=== PATIENT | female | born 1955 | race Caucasian/White ===

== ENCOUNTER 2019-08-13 08:09 | Inpatient (IN) | payer MEDICARE, BC, SELFPAY ==
--- NOTE | ~2019-08-13 | CT_ITS ---
EXAMINATION: CT abdomen pelvis w con DATE: 08/13/2019 09:26 INDICATION: Abdominal pain. History of lap band. TECHNIQUE: Computed tomography (CT) of the abdomen and pelvis was performed without intravenous contr ast. Automated exposure control and iterative reconstruction technique were employed. Exam dose: 123 6.47 mGy-cm total exam DLP. COMPARISON: None. FINDINGS: There is an 11 mm right hepatic cyst. No other hepatic space-occupying mass lesion is detec joseph. Mild periportal edema. There is mild gallbladder wall thickening/edema and mild pericholecystic stranding. Acute cholecystit is is not excluded. No bile duct dilatation. No pancreatic ductal dilatation. No pancreatic mass lesi on or calcification. Normal splenic size. Normal morphology of the adrenal glands. 5 mm lower pole right renal cyst. The kidneys are otherwise unremarkable. No urinary tract calculus o r hydroureteronephrosis. The urinary bladder, uterus and adnexal areas are unremarkable. There is abdominal aortic calcification. No intraperitoneal or retroperitoneal or pelvic mass lesion or adenopathy or ascites is detected. Diverticulosis of colon, primarily involving the sigmoid colon; no CT evidence of diverticulitis. No bowel obstruction or intraperitoneal free air. Small fat-containing umbilical hernia. Degenerative changes of the thoracic and lumbar spine. No suspicious osteolytic or osteoblastic lesio ns. IMPRESSION: Mild gallbladder wall thickening/edema and mild pericholecystic stranding. Acute cholecy stitis is not excluded. Consider gallbladder ultrasound and possibly radionuclide hepatobiliary scan as clinically appropriate 5 mm right renal cyst Diverticulosis of the colon; no CT evidence of diverticulitis Reviewed, dictated and finalized at [facility]. Reviewed, dictated and finalized at location B. K WATCHMAN IMPRESSION: Mild gallbladder wall thickening/edema and mild pericholecystic st randing. Acute cholecystitis is not excluded. Consider gallbladder ultrasound a nd possibly radionuclide hepatobiliary scan as clinically appropriate 5 mm right renal cyst Diverticulosis of the colon; no CT evidence of diverticulitis
--- NOTE | ~2019-08-13 | US_ITS ---
EXAMINATION: US right upper quadrant DATE: 08/13/2019 11:34 INDICATION: Right upper quadrant abdominal pain. Distended gallbladder on prior CT. TECHNIQUE: Multiple grayscale and Doppler ultrasound images of the abdomen were obtained. COMPARISON: CT dated 08/13/2019 FINDINGS: The pancreatic head and body are normal in appearance. The pancreatic tail is not visualized. Visual ized proximal inferior vena cava is normal. Liver has normal echogenicity and contour, with a smooth surface. 10 mm anechoic cyst in segment 6 of the liver. No intrahepatic biliary duct dilation suspect ed. Portal venous flow was seen in the hepatopetal, normal direction and has normal Doppler waveform. Large shadowing gallstones at the neck of the gallbladder which appears dilated with wall thickening and small amount of pericholecystic fluid at the gallbladder fossa. Sonographic Kasper sign was repo rted as positive by the commercial escrow officer. There is mild intrahepatic biliary ductal dilation of the common bile duct remains normal in caliber measuring 5 mm. Visualized portion of the right kidney demonstra cordell normal contour and echogenicity with no hydronephrosis. IMPRESSION: 1. Likely acute cholecystitis with gallstone within dilated gallbladder with thickened wall, small am ount pericholecystic fluid and positive sonographic Kasper's. 2. Mild intrahepatic biliary ductal dilation but with normal caliber common bile duct. Correlate with liver function tests. Reviewed, dictated and finalized at location A. PROGRAMMER IMPRESSION: 1. Likely acute cholecystitis with gallstone within dilated gallbladder with th ickened wall, small amount pericholecystic fluid and positive sonographic Paulina y's. 2. Mild intrahepatic biliary ductal dilation but with normal caliber common cameron e duct. Correlate with liver function tests.
[2019-08-13 08:17] VITALS: BP 145/86; PULSE 78; RESP 18; TEMP 36.7; O2SAT 96
[2019-08-13 08:36] LABS: Basophils Absolute Auto 0.1 K/mm3 (0.0-0.1); Basophils Percent Auto 0.7 % (0.2-1.2); Eosinophils Absolute Auto 0.1 K/mm3 (0-0.3); Eosinophils Percent Auto 1.1 % (0-4.4); Hematocrit 44.4 % (37.0-47.0); Hemoglobin 14.6 g/dL (12.0-15.0); Immature Granulocyte Absolute 0.03 K/mm3 (0.00-0.031); Immature Granulocyte Percent A 0.3 % (0-0.5); Lymphocytes Absolute Auto 1.58 K/mm3 (0.9-3.2); Lymphocytes Percent Auto 15.3 % (18.3-44.2); Mean Corpuscular HGB Conc 32.9 g/dl (32-36); Mean Corpuscular Hemoglobin 29.7 pg (26-34); Mean Corpuscular Volume 90.2 fl (80-100); Mean Platelet Volume 10.9 fl (7.4-10.4); Monocytes Absolute Auto 0.6 K/mm3 (0.1-0.6); Neutrophils Absolute Auto 7.9 K/mm3 (1.3-6.7); Neutrophils Percent Auto 76.6 % (45.5-73.1); Platelet Count Result 228 k/mm3 (150-375); Red Blood Count 4.92 M/mm3 (4.2-5.4); Red Cell Distribution Width 13.9 % (11.5-14.5); White Blood Count 10.3 K/mm3 (4.5-10.0)
[2019-08-13 08:41] LABS: Add Urine Microscopic? YES; Appearance Urine Clear (Clear); Bilirubin Urine Negative (Negative); Blood Urine Negative (Negative); Color Urine Yellow (Yellow); Glucose Urine UA Negative (Negative); Ketones Urine Negative (Negative); Leukocyte Esterase Ur 2+ LEU/UL (Negative); Mucus Urine Rare /lpf; Nitrate Urine Negative (Negative); Protein Urine 1+ mg/dL (Negative); Specific Grav Ur 1.021 (1.001-1.035); Squamous Epithelial Cell Urine Rare /hpf (Few); Urobilinogen Urine Negative mg/dL (<2.0); WBC Urine 21-30 /hpf
[2019-08-13 08:49] LABS: Alanine Aminotransferase 234 U/L (4-35); Albumin Level 4.8 g/dL (3.5-5.1); Alkaline Phosphatase 127 U/L (38-126); Aspartate Amino Transferase 465 U/L (14-36); Bilirubin,Total 1.4 mg/dL (0.2-1.3); Blood Urea Nitrogen 13 mg/dL (7-17); Calcium 10.2 mg/dL (8.4-10.2); Carbon Dioxide 28 mmol/L (22-30); Chloride 99 mmol/L (98-107); Estimated CRCL calculation 71 ml/min; Estimated Glomerular Filt Rate > 60; Glucose 131 mg/dL (65-105); Lipase 69 U/L (23-300); Potassium 3.6 mmol/L (3.4-5.0); Sodium 141 mmol/L (137-145)
--- NOTE | 2019-08-13 09:01 | ED.ABDPAIN ---
HPI - Abdominal Pain General Chief Complaint: Abdominal Pain Stated Complaint: abd pain Time Seen by Provider: 08/13/19 09:06 Source: patient Mode of arrival: ambulatory Limitations: no limitations History of Present Illness HPI narrative: A 63 y/o female pt presents to the ED, with c/o RUQ ABD pain that radiates across her back, that woke her up out of her sleep at 3 am this morning (6 hours ago). Pt describes her ABD pain as an aching, squeezing sensation and notes feeling nauseous, but denies vomiting, diarrhea, SOB or CP. She denies any aggravating or alleviating factors. She notes having a PSHx of an appendectomy, and a gastric banding procedure. Pt states that she is unsure of the last time she saw the surgeon who performed the gastric banding procedure. Pt denies any PMHx of DM, HTN, HLD, [place], CVA or thyroid problems and denies taking any anticoagulation therapy. MD elicited complaint: abdominal pain Onset (ago): hour(s) (6) Location: RUQ Quality: aching and other (squeezing) Radiation: back Exacerbating factors: nothing Relieving factors: nothing Associated symptoms: nausea Related Data Home Medications Medication Instructions Recorded Confirmed hyoscyamine sulfate 0.375 mg 0.375 mg PO .Q24 tablet 07/17/19 tablet,extended release,12 hr minocycline 50 mg tablet 50 mg PO BID 07/17/19 Allergies Allergy/AdvReac Type Severity Reaction Status Date / Time talc Allergy Unknown Unknown Verified 08/13/19 08:52 terbinafine Allergy Unknown Unknown Verified 08/13/19 08:52 TERBINAFINE HCL Allergy Unknown HIVES Uncoded 04/16/18 07:04 Review of Systems Review of Systems: All systems reviewed & are unremarkable except as noted in HPI and below Cardiovascular: Cardiovascular: Denies chest pain Respiratory: Respiratory: Denies dyspnea Gastrointestinal: Gastrointestinal: Reports abdominal pain (RUQ aching, squeezing), Denies diarrhea, Reports nausea and Denies vomiting Musculoskeletal: Musculoskeletal: Reports back pain (radiating from RUQ ABD) [facility] Past Medical History Medical History (Updated 08/13/19 @ 11:12 by Shawn Frank MD) Ankle fracture, right Arthritis Hammer toes, bilateral Hiatal hernia History of gastroesophageal reflux (GERD) History of rectal polyps Hx of colonic polyps Irritable bowel Mitral valve prolapse Sleep apnea Tuberculosis Surgical History Surgical History (Updated 08/13/19 @ 10:04 by Demetrius Yates, [employer]™) History of appendectomy History of gastric bypass lap band procedure Family History Family History (Updated 12/20/18 @ 08:07 by DOCTOR UNKNOWN) Mother Family history of multiple sclerosis Family history of diabetes mellitus in first degree relative Acute myocardial infarction, Onset Age: 79 Diabetes mellitus Family history of cardiovascular disease Father Acute myocardial infarction Social History Social History Smoking status: Former smoker Second hand tobacco smoke exposure: No Alcohol intake: never Exam Narrative: Exam Narrative: General appearance: Well-developed, well-nourished Skin: Normal color Head: Normocephalic, nontraumatic Eyes: Clear conjunctiva ENT: Oropharynx normal, ears normal, nose normal Neck: Supple, nontender Chest and respiratory: Airway patent, no respiratory distress, no accessory muscle use Heart: Regular rate/rhythm Abdomen: Soft, moderate tenderness right upper quadrant, positive Kasper sign, no organomegaly, quiet bowel sounds Vascular: Normal peripheral pulses, normal capillary refill. Musculoskeletal: Normal range of motion, nontender back Neurologic: Alert and oriented ?3, GOLD MINER is normal as tested, no gross motor deficit
[2019-08-13] MEDS: ONDANSETRON INJ 4 MG/2 ML VIAL IV PUSH (09:07)
[2019-08-13] MEDS: HYDROMORPHONE HCL 1 MG/ML INJ 0.5 MG IV PUSH (09:07)
[2019-08-13] MEDS: SODIUM CHLORIDE 0.9% IV 1,000 ML 999 ML IV CONT (09:59)
[2019-08-13 12:32] VITALS: BP 129/80; PULSE 73; RESP 16; O2SAT 99
[2019-08-13 13:00] VITALS: BMI 38.6
--- NOTE | 2019-08-13 13:00 | ADMGEN ---
This patient, Ilda Prather, was admitted to Medical Room 261-01. Patient/family oriented to hospital policies and general routines including ID bracelet, bed and alarms, visiting hours, pain management, procedures, bathroom and other care routines, personal items, smoking policy, room service/diet, and visiting hours. Valuables list has been completed. Information on how to activate the Rapid Response Team has been discussed. Patient/Family are encouraged to report perceived risks to care and to ask questions if they do not understand what they are told or what they should do.
[2019-08-13] MEDS: LACTATED RINGERS 1,000 ML 125 ML IV CONT (13:38)
[2019-08-13 14:00] VITALS: BP 182/96; PULSE 80; RESP 16; TEMP 36.1; O2SAT 98; BMI 39.0
[2019-08-13 14:47] VITALS: BP 142/80
--- NOTE | 2019-08-13 14:54 | PM.IMHP ---
H&P: HPI History of Present Illness Chief complaint: Acute Cholecystitis/Acute UTI Narrative: Ilda Prather is a 63 year old female pt who presented to the ED today, with c/o RUQ ABD pain that radiates across her back. It woke her up out of her sleep at 3 am this morning. Pt describes her abdominal pain as an aching, squeezing sensation and notes feeling nauseous, but denies vomiting, diarrhea, SOB or chest pain. she states that last night at supper she ate home ate pizza with months roll a and other type of cheese along with pepperoni on it. She did not immediately have pain afterwards but developed the epigastric pain radiating to her right side and right scapular area when she woke up early this morning. She denies any aggravating or alleviating factors. She notes having a PSHx of an appendectomy, and a gastric banding procedure (2013). Pt states that she is unsure of the last time she saw the surgeon who performed the gastric banding procedure. She states that she did cm for a year and a half. She is not sure whether her lap band has any fluid in it or not. Her highest weight ever however was just about 10 lb higher than she is now at around 230 lbs. Pt denies any PMHx of DM, HTN, HLD, [place], CVA or thyroid problems and denies taking any anticoagulation therapy. Review of Systems Constitutional: Constitutional: Reports as per HPI and Denies headache(s) Eyes: Eyes: Denies loss of vision and Denies eye pain ENT: Reports Normal hearing present, Denies change in voice, Denies dizziness and Denies headache(s) Cardiovascular: Cardiovascular: Denies chest pain, Denies dyspnea and Reports other (History of mitral valve prolapse) Comments: Elevated blood pressure at last PCP visit. Is watching diet with low sodium and will start medication next visit if still elevated. Respiratory: Respiratory: Reports no additional respiratory complaints, Denies dyspnea and Denies wheezing Comments: history of obstructive sleep apnea. Possible history of tuberculosis. Gastrointestinal: Gastrointestinal: Reports abdominal pain, Reports heartburn ( not on a routine H2 keisha or proton pump inhibitor) and Reports diarrhea ( Occasional days of multiple loose stools.) Comments: Also has history of previous rectal and colonic polyps. History of previous appendectomy History of possible irritable bowel syndrome Musculoskeletal: Musculoskeletal: Denies back pain and Denies arthralgias Neurologic: Reports Normal hearing present, Denies dizziness, Denies headache(s), Denies loss of vision and Denies memory loss Psychiatric: Psychiatric: Denies memory loss and Denies panic attacks Endocrine: Endocrine: Reports no additional endocrine complaints Hematologic/Lymphatic: Hematologic/Lymphatic: Reports no additional hematologic/lymphatic complaints Allergic/Immunologic: Allergic/Immunologic: Denies wheezing PMFSH Past Medical History Medical History (Updated 08/13/19 @ 15:58 by Tomi Cervantes MD) Ankle fracture, right Arthritis Elevated blood pressure reading (~03/2019) Hammer toes, bilateral Hiatal hernia History of gastroesophageal reflux (GERD) History of rectal polyps Hx of colonic polyps Irritable bowel Mitral valve prolapse Sleep apnea Tuberculosis Surgical History Surgical History (Updated 08/13/19 @ 15:58 by Tomi Cervantes MD) History of appendectomy History of gastric bypass lap band procedure Social History Social History (Reviewed 08/13/19 @ 10:04 by Demetrius Yates, [facility]) Smoking packs per day: 0.5 Smoking cigarettes per day: 10.0 Years smoked: 20 Smoking pack-years: 10.00 Smoking status: Former smoker Second hand tobacco smoke exposure: No Alcohol intake: current Drinks per week: 3 Substance use: former Substance use type: marijuana Last use: 1960s Gender identity (if verbalized by the patient): Female Spiritual care concerns: No Agree to blood products: Yes Meds Home Medica
--- NOTE | 2019-08-13 15:58 | PM.IMCN ---
Assessment and Plan Assessment and plan (1) Cholelithiasis with acute cholecystitis with biliary obstruction: Onset Date: 08/13/19 Code(s): K80.01 - Calculus of gallbladder with acute cholecystitis with obstruction Status: Acute Assessment and Plan: Patient is 63-year-old female with no significant past medical history other than elevated blood pressure without history of hypertension patient was awakened early this morning with abdominal pain she came to emergency department patient is found to have acute cholecystitis seen by general surgery team and planned to have a cholecystectomy tomorrow, present time patient denies any complaint of chest pain shortness of breath, palpitation fever or chills, she did have some dry heaves but no vomiting. (2) Elevated blood pressure reading: Onset Date: ~03/2019 Code(s): R03.0 - Elevated blood-pressure reading, without diagnosis of hypertension Status: Acute Assessment and Plan: Patient with elevated blood pressure without history of hypertension her primary care physician is aware and has spoken with the patient down the road patient will need blood pressure medication, continue to monitor and plan accordingly, denies any chest pain shortness of breath palpitation or dizziness HPI Data of Consult Consult date: 08/13/19 Requesting Physician: Tomi Cervantes MD Primary Care Provider: Esau Duque DO Consult Narrative Narrative: Ilda Prather is a 63 year old female Patient is 63-year-old female with no significant past medical history other than elevated blood pressure without history of hypertension patient was awakened early this morning with abdominal pain she came to emergency department patient is found to have acute cholecystitis seen by general surgery team and planned to have a cholecystectomy tomorrow, present time patient denies any complaint of chest pain shortness of breath, palpitation fever or chills, she did have some dry heaves but no vomiting. Review of Systems Review of Systems: All systems reviewed & are unremarkable except as noted in HPI and below PMFSH Past Medical History Medical History (Updated 08/13/19 @ 15:58 by Tomi Cervantes MD) Ankle fracture, right Arthritis Elevated blood pressure reading (~03/2019) Hammer toes, bilateral Hiatal hernia History of gastroesophageal reflux (GERD) History of rectal polyps Hx of colonic polyps Irritable bowel Mitral valve prolapse Sleep apnea Tuberculosis Surgical History Surgical History (Updated 08/13/19 @ 15:58 by Tomi Cervantes MD) History of appendectomy History of gastric bypass lap band procedure Social History Social History Smoking packs per day: 0.5 Smoking cigarettes per day: 10.0 Years smoked: 20 Smoking pack-years: 10.00 Smoking status: Former smoker Second hand tobacco smoke exposure: No Alcohol intake: current Drinks per week: 3 Substance use: former Substance use type: marijuana Last use: 1960s Gender identity (if verbalized by the patient): Female Spiritual care concerns: No Agree to blood products: Yes Meds Home Medications and Allergies Home Medications Medication Instructions Recorded Confirmed Type hyoscyamine sulfate 0.375 mg 0.375 mg PO .Q24 tablet 07/17/19 08/13/19 History tablet,extended release,12 hr minocycline 50 mg tablet 50 mg PO BID PRN 07/17/19 08/13/19 History aspirin 325 mg PO DAILY 08/13/19 08/13/19 History cholecalciferol (vitamin D3) 2,000 unit PO DAILY 08/13/19 08/13/19 History [Vitamin D3] loperamide-simethicone [Imodium 1 tablet PO DAILY 08/13/19 08/13/19 History Multi-Symptom Relief] peppermint oil [IBgard] 90 mg PO DAILY 08/13/19 08/13/19 History Allergies Allergy/AdvReac Type Severity Reaction Status Date / Time terbinafine Allergy Mild Hives Verified 08/13/19 13:02 Vital Signs Re
--- NOTE | 2019-08-13 16:09 | ECG_ITS ---
Measurements Intervals [place] Rate: 63 P: -3 PA: 197 QRS: -13 QRSD: 98 T: -14 QT: 409 QTc: 419 Interpretive Statements SINUS RHYTHM VOLTAGE CITERIA FOR LVH BORDERLINE ST-T WAVE ABNORMALITY- INFERIOR LEADS BORDERLINE ECG Electronically Signed On 08-13-2019 17:56:43 LOCKER ROOM ATTENDANT by Eric Monroy D.O.
[2019-08-13 17:57] LABS: Albumin Level 4.3 g/dL (3.5-5.1); Alkaline Phosphatase 126 U/L (38-126); Bilirubin,Total 1.1 mg/dL (0.2-1.3)
[2019-08-13 18:31] LABS: Alanine Aminotransferase 799 U/L (4-35); Aspartate Amino Transferase 991 U/L (14-36)
[2019-08-13] MEDS: ACETAMINOPHEN 325 MG TABLET 650 MG PO ×2 (18:53→23:42)
[2019-08-13 21:39] VITALS: BP 132/84; PULSE 76; RESP 16; TEMP 36.7; O2SAT 93
[2019-08-13 22:04] VITALS: BP 132/84; PULSE 76; RESP 16; TEMP 36.7; O2SAT 93
[2019-08-13] MEDS: LACTATED RINGERS 1,000 ML 80 ML IV CONT (23:40)
[2019-08-14] VITALS (13 sets, daily range): BP systolic 128–151; BP diastolic 78–98; PULSE 58–76; RESP 12–16; TEMP 35.9–37.4; O2SAT 94–100
[2019-08-14 05:50] LABS: Lipase 36 U/L (23-300)
[2019-08-14 05:56] LABS: Alanine Aminotransferase 623 U/L (4-35); Albumin Level 3.7 g/dL (3.5-5.1); Alkaline Phosphatase 94 U/L (38-126); Aspartate Amino Transferase 460 U/L (14-36); Blood Urea Nitrogen 7 mg/dL (7-17); Calcium 8.9 mg/dL (8.4-10.2); Carbon Dioxide 28 mmol/L (22-30); Chloride 103 mmol/L (98-107); Estimated CRCL calculation 64 ml/min; Estimated Glomerular Filt Rate > 60; Glucose 98 mg/dL (65-105); Potassium 3.6 mmol/L (3.4-5.0); Sodium 139 mmol/L (137-145)
[2019-08-14 06:05] LABS: Basophils Percent Auto 0.9 % (0.2-1.2); Eosinophils Absolute Auto 0.2 K/mm3 (0-0.3); Eosinophils Percent Auto 3.7 % (0-4.4); Hematocrit 37.8 % (37.0-47.0); Hemoglobin 12.1 g/dL (12.0-15.0); Immature Granulocyte Absolute 0.01 K/mm3 (0.00-0.031); Immature Granulocyte Percent A 0.2 % (0-0.5); Lymphocytes Absolute Auto 1.64 K/mm3 (0.9-3.2); Lymphocytes Percent Auto 38.1 % (18.3-44.2); Mean Corpuscular Hemoglobin 29.3 pg (26-34); Mean Corpuscular Volume 91.5 fl (80-100); Monocytes Absolute Auto 0.4 K/mm3 (0.1-0.6); Neutrophils Absolute Auto 2.1 K/mm3 (1.3-6.7); Neutrophils Percent Auto 48.1 % (45.5-73.1); Platelet Count Result 188 k/mm3 (150-375); Red Blood Count 4.13 M/mm3 (4.2-5.4); Red Cell Distribution Width 14.1 % (11.5-14.5); White Blood Count 4.3 K/mm3 (4.5-10.0)
[2019-08-14] MEDS: CHLORHEXIDINE GLUCONATE 4% SOL 120 ML BTL 1 APPLIC TOPICAL (08:04)
--- NOTE | 2019-08-14 08:09 | WPDHPUPDATE1 ---
History and Physical Update Update Date/Time: 08/14/19 08:09 History and Physical has been reviewed, including an updated exam of the patient. There are NO changes in the patient's condition. Risks, benefits, and alternatives Of a laparoscopic cholecystectomy possible intraoperative cholangiogram possible open cholecystectomy have been discussed and questions answered. Patient agrees to proceed with procedure.
[2019-08-14] MEDS: ACETAMINOPHEN 325 MG TABLET 650 MG PO (08:18)
[2019-08-14] MEDS: BISACODYL 10 MG SUPPOSITORY RECTAL (09:58)
--- NOTE | 2019-08-14 13:05 | PM.IMPN ---
Progress Note: A&P Assessment and Plan (1) Cholelithiasis with acute cholecystitis with biliary obstruction: Onset Date: 08/13/19 Code(s): K80.01 - Calculus of gallbladder with acute cholecystitis with obstruction Status: Acute Assessment and Plan: 08/14/19 13:05 Patient is 63-year-old female with no significant past medical history other than elevated blood pressure without history of hypertension patient was awakened early this morning with abdominal pain she came to emergency department patient is found to have acute cholecystitis seen by general surgery team and planned to have a cholecystectomy tomorrow, present time patient denies any complaint of chest pain shortness of breath, palpitation fever or chills, she did have some dry heaves but no vomiting. Today patient is seen by surgery team patient denies any abdominal pain nausea or vomiting fever chills and scheduled for lap brayden later this afternoon, will follow up. (2) Elevated blood pressure reading: Onset Date: ~03/2019 Code(s): R03.0 - Elevated blood-pressure reading, without diagnosis of hypertension Status: Acute Assessment and Plan: Patient with elevated blood pressure without history of hypertension her primary care physician is aware and has spoken with the patient down the road patient will need blood pressure medication, continue to monitor and plan accordingly, denies any chest pain shortness of breath palpitation or dizziness, today patient blood pressure is more to baseline Subjective Date/time seen: 08/14/19 13:05 Patient is 63-year-old female with no significant past medical history other than elevated blood pressure without history of hypertension patient was awakened early this morning with abdominal pain she came to emergency department patient is found to have acute cholecystitis seen by general surgery team and planned to have a cholecystectomy tomorrow, present time patient denies any complaint of chest pain shortness of breath, palpitation fever or chills, she did have some dry heaves but no vomiting. Today patient is seen by surgery team patient denies any abdominal pain nausea or vomiting fever chills and scheduled for lap brayden later this afternoon, will follow up. Review of Systems Review of Systems: All systems reviewed & are unremarkable except as noted in HPI and below Exam Narrative: Exam Narrative: Moderately obese Const: General: comfortable and no acute distress HENMT: General nose exam: Normal nares present Mouth: Yes moist mucous membranes Eyes: General: appearance normal, both eyes and all related structures Sclera: sclerae normal Neck: Neck: supple Resp: Effort & Inspection: normal respiratory effort Auscultation: clear to auscultation bilaterally Cardio: Rate: regular rate Rhythm: regular rhythm GI: Auscultation: normal bowel sounds Other: Tender in right upper quadrant Skin: General skin exam: normal color and no rashes or lesions noted Neuro: Speech: normal speech Sensory Exam: normal sensation Extrem: General: normal to inspection Psych: Mental Status: mental status grossly normal Affect: normal affect Objective Data Vital Signs Vital Signs: Vital Signs - 24 hr 08/13/19 14:00 08/13/19 14:47 08/13/19 21:39 Temperature 96.9 F L 98.0 F Pulse Rate 80 76 Respiratory Rate 16 16 Blood Pressure 182/96 H 142/80 H 132/84 Pulse Oximetry 98 93 08/13/19 22:04 08/14/19 05:55 Temperature 98.0 F 97.0 F L Pulse Rate 76 65 Respiratory Rate 16 16 Blood Pressure 132/84 128/78 Pulse Oximetry 93 98 Intake/Output Intake/Output: Intake & Output 08/11/19 08/12/19 08/13/19 08/14/19 23:59 23:59 23:59 23:59 Intake Total 2840 647 Balance 2840 647 Meds/Results Medications: Active Medications Generic Name Dose Route Start Last Admin Trade Name Freq PRN Reason Stop Dose Admin Acetaminophen 650 mg 08/13/19 16:04 08/14/19 08:18 Tylenol Tablet P
--- NOTE | 2019-08-14 13:15 | WPDANESEPPF ---
Anes - Initial Pre Proc Eval Procedure: Operation Date: 08/14/19 14:00 Proposed Procedures p Laparoscopic Cholecystectomy,Possible Intraoperative Cholangiograms,Possible Open - Tomi Cervantes MD Date/Time: 08/14/19 13:15 Surgeon: Tomi Cervantes MD Pre Op Diagnosis: Acute Cholecystitis/Acute UTI Patient Data Age: 63 Gender: F Height: 5 ft 4 in Weight: 103.2 kg Last Vital Signs Temp 36.1 C L 08/14/19 05:55 Pulse 65 08/14/19 05:55 Resp 16 08/14/19 05:55 BP 128/78 08/14/19 05:55 Pulse Ox 98 08/14/19 05:55 Allergies Allergy/AdvReac Type Severity Reaction Status Date / Time terbinafine Allergy Mild Hives Verified 08/13/19 13:02 Home Medications Medication Instructions Recorded Confirmed Type hyoscyamine sulfate 0.375 mg 0.375 mg PO .Q24 tablet 07/17/19 08/13/19 History tablet,extended release,12 hr minocycline 50 mg tablet 50 mg PO BID PRN 07/17/19 08/13/19 History aspirin 325 mg PO DAILY 08/13/19 08/13/19 History cholecalciferol (vitamin D3) 2,000 unit PO DAILY 08/13/19 08/13/19 History [Vitamin D3] loperamide-simethicone [Imodium 1 tablet PO DAILY 08/13/19 08/13/19 History Multi-Symptom Relief] peppermint oil [IBgard] 90 mg PO DAILY 08/13/19 08/13/19 History Laboratory Tests 08/13/19 08/14/19 08/14/19 17:26 04:39 04:39 WBC 4.3 K/mm3 L K/mm3 (4.5-10.0) RBC 4.13 M/mm3 L M/mm3 (4.2-5.4) Hgb 12.1 g/dL g/dL (12.0-15.0) Hct 37.8 % % (37.0-47.0) MCV 91.5 fl fl (80-100) MCH 29.3 pg pg (26-34) MCHC 32.0 g/dl g/dl (32-36) RDW 14.1 % % (11.5-14.5) Plt Count 188 k/mm3 k/mm3 (150-375) MPV 11.0 fl H fl (7.4-10.4) Immature Gran % (Auto) 0.2 % % (0-0.5) Neut % (Auto) 48.1 % % (45.5-73.1) Lymph % (Auto) 38.1 % % (18.3-44.2) Blaine % (Auto) 9.0 % H % (2.6-8.5) Eos % (Auto) 3.7 % % (0-4.4) Baso % (Auto) 0.9 % % (0.2-1.2) Lymph # (Auto) 1.64 K/mm3 K/mm3 (0.9-3.2) Blaine # (Auto) 0.4 K/mm3 K/mm3 (0.1-0.6) Eos # (Auto) 0.2 K/mm3 K/mm3 (0-0.3) Baso # (Auto) 0.0 K/mm3 K/mm3 (0.0-0.1) Abs Immat Gran (auto) 0.01 K/mm3 K/mm3 (0.00-0.031) Absolute Neuts (auto) 2.1 K/mm3 K/mm3 (1.3-6.7) Absolute Nucleated RBC 0.0 K/mm3 K/mm3 (0.0-0.012) Nucleated RBC % 0.0 % % (0.0-0.2) Sodium 139 mmol/L mmol/L (137-145) Potassium 3.6 mmol/L mmol/L (3.4-5.0) Chloride 103 mmol/L mmol/L (98-107) Carbon Dioxide 28 mmol/L mmol/L (22-30) BUN 7 mg/dL D mg/dL (7-17) Creatinine 0.90 mg/dL mg/dL (0.7-1.0) Estim Creat Clear Calc 64 ml/min ml/min Estimated GFR > 60 (59 - ) Glucose 98 mg/dL mg/dL (65-105) Calcium 8.9 mg/dL mg/dL (8.4-10.2) Magnesium 2.0 mg/dL mg/dL (1.6-2.3) Total Bilirubin 1.1 mg/dL mg/dL 1.0 mg/dL mg/dL (0.2-1.3) (0.2-1.3) Direct Bilirubin 0.0 mg/dL mg/dL 0.0 mg/dL mg/dL (0-0.3) (0-0.3) AST 991 U/L H U/L 460 U/L H U/L (14-36) (14-36) ALT 799 U/L H U/L 623 U/L H U/L (4-35) (4-35) Alkaline Phosphatase 126 U/L U/L 94 U/L U/L (38-126) (38-126) Total Protein 7.0 g/dL g/dL 7.0 g/dL g/dL (6.3-8.2) (6.3-8.2) Albumin 4.3 g/dL g/dL 3.7 g/dL g/dL (3.5-5.1) (3.5-5.1) Lipase Blood Type Antibody Screen 08/14/19 08/14/19 04:39 04:39 WBC RBC Hgb Hct MCV MCH MCHC RDW Plt Count MPV Immature Gran % (Auto) Neut % (Auto) Lymph % (Auto) Blaine % (Auto) Eos % (Auto) Baso % (Auto) Lymph # (Auto) Blaine # (Auto) Eos # (Auto)
[2019-08-14] MEDS: SCOPOLAMINE 1.5 MG PATCH TRANSDERM (14:00)
[2019-08-14] MEDS: LACTATED RINGERS 1,000 ML 30 ML IV CONT ×2 (14:07→16:14)
--- NOTE | 2019-08-14 14:12 | PC.NURSE ---
Patient to OR at 1230.
[2019-08-14] MEDS: BUPIVACAINE/EPINEPHRINE 0.5% 30 ML VIAL INFILTRATE (14:52)
--- NOTE | 2019-08-14 16:16 | PM.PROC ---
Procedure Note - Detailed Date of procedure: 08/14/19 Pre-op diagnosis: Acute Cholecystitis/Acute UTI Acute cholecystitis with cholelithiasis Post-op diagnosis: same Procedure performed: Laparoscopic cholecystectomy. Description of procedure: Procedure Details: Patient was seen preoperatively in the holding area and risks, benefits and alternatives confirmed. Patient was taken to the operating room and general anesthesia was induced. A time out was then preformed with the surgery team confirming patient and site of surgery. The abdomen was prepped and draped in the usual sterile fashion. Incision was made just below the umbilicus. Two stay sutures of O- Vicryl were used to elevate the mid-line fascia beneath the umbilicus and a small incision was made under direct vision. The peritoneum was entered. The 12 mm Cortez cannula was introduced under direct vision. First under low flow and then under high flow the abdomen was insufflated with carbon dioxide never exceeding a pressure of 14. Three 5 mm trocars were then introduced under direct vision. The following trocars were introduced under direct vision: a 5 mm in the epigastrium and two 5 mm trocars along the right costal margin. There were significant adhesions of the omentum to the entire inferior surface of the gallbladder. These were carefully taken down with Bovie cautery and the L hook. At the bottom near the cystic duct and cystic artery of blunt dissection with a Kittner was completed. Then the gall bladder was grasped and the cystic duct and artery were dissected free and clipped with an 5 mm endo-clip security project manager. Two were placed on the patient's side and 1 on the gallbladder side of each of these structures. The window of safety was identified prior to clipping and cutting these structures. No other tubular structures were noted between the gallbladder and the common duct area.. The cystic duct was then transected. The cystic artery was also transected at this point. The gall bladder was removed using electrocautery and then removed using a large 10 mm grasper via the umbilical incision. The trocars were removed visualizing hemostasis and the remaining gas evacuated. The large trocar site at the umbilicus was closed with an 0 vicryl figure of 8 suture. The 2 stay sutures mentioned above on either side of the fascia were also tied together to help approximate this midline fascia. Further local anesthetic was placed into each incision for postop pain control. The skin incisions were closed with a subcuticular of 4-0 Monocryl. Surgical glue then was applied to all the incisions. Patient tolerated the procedure well was taken to the recovery room in good condition. Anesthesia: MAVERICKA Surgeon: Tomi Cervantes MD Dean Of Students: JANINE Pulido, OR 1st assist Estimated blood loss (mL): 60 Drains: No Packing: No Pathology: yes (The gallbladder) Complications: No immediate complications Condition: stable Disposition: PACU Findings: Mildly inflamed gallbladder with a fairly large stone within it upon palpation when it was removed from the umbilical incision.
--- NOTE | 2019-08-14 18:00 | PC.NURSE ---
Pt returned from OR.
[2019-08-14] MEDS: DOCUSATE SODIUM 100 MG CAPSULE PO (18:10)
[2019-08-14] MEDS: ACETAMINOPHEN 500 MG TABLET PO (18:12)
[2019-08-15] MEDS: ACETAMINOPHEN 500 MG TABLET PO ×2 (00:36→06:40)
[2019-08-15 01:30] VITALS: TEMP 36.4
[2019-08-15 06:18] VITALS: BP 131/78; PULSE 68; RESP 16; TEMP 36.3; O2SAT 96
[2019-08-15 08:21] LABS: Hematocrit 38.9 % (37.0-47.0); Hemoglobin 12.5 g/dL (12.0-15.0); Mean Corpuscular HGB Conc 32.1 g/dl (32-36); Mean Corpuscular Hemoglobin 29.2 pg (26-34); Mean Corpuscular Volume 90.9 fl (80-100); Mean Platelet Volume 10.6 fl (7.4-10.4); Platelet Count Result 210 k/mm3 (150-375); Red Blood Count 4.28 M/mm3 (4.2-5.4); White Blood Count 8.7 K/mm3 (4.5-10.0)
[2019-08-15 08:32] LABS: Alanine Aminotransferase 460 U/L (4-35); Albumin Level 4.2 g/dL (3.5-5.1); Alkaline Phosphatase 92 U/L (38-126); Aspartate Amino Transferase 184 U/L (14-36); Bilirubin,Total 0.6 mg/dL (0.2-1.3); Blood Urea Nitrogen 6 mg/dL (7-17); Calcium 9.3 mg/dL (8.4-10.2); Carbon Dioxide 27 mmol/L (22-30); Chloride 100 mmol/L (98-107); Estimated CRCL calculation 71 ml/min; Estimated Glomerular Filt Rate > 60; Glucose 130 mg/dL (65-105); Potassium 3.6 mmol/L (3.4-5.0); Sodium 139 mmol/L (137-145)
--- NOTE | 2019-08-15 08:45 | WPDANESPN ---
Anes - Prog Note Post-Op Date/Time: 08/15/19 08:45 Cardiovascular status: normal Respiratory status: normal Airway patency: baseline Mental status: baseline Post-Op hydration status: normal Vital Signs: Last Vital Signs Temp 36.3 C L 08/15/19 06:18 Pulse 68 08/15/19 06:18 Resp 16 08/15/19 06:18 BP 131/78 08/15/19 06:18 Pulse Ox 96 08/15/19 06:18 I/O: Intake & Output 08/14/19 08/15/19 08/15/19 23:59 07:59 15:59 Intake Total 653 Output Total 400 300 Balance 253 -300 Laboratory Tests 08/15/19 08:04 08/15/19 08:04 08/15/19 08/15/19 08:04 08:04 WBC 8.7 RBC 4.28 Hgb 12.5 Hct 38.9 MCV 90.9 MCH 29.2 MCHC 32.1 RDW 14.0 Plt Count 210 MPV 10.6 H Sodium 139 Potassium 3.6 Chloride 100 Carbon Dioxide 27 BUN 6 L Creatinine 0.80 Estim Creat Clear Calc 71 Estimated GFR > 60 Glucose 130 H Calcium 9.3 Total Bilirubin 0.6 AST 184 H ALT 460 H Alkaline Phosphatase 92 Total Protein 8.0 Albumin 4.2 Microbiology 08/13/19 08:29 Urine Clean Catch Urine Culture - Final Escherichia Coli Post-procedural complaints: none Patient Feedback: Patient satisfied with anesthetic care.
[2019-08-15] MEDS: ENOXAPARIN 40 MG/0.4 ML SYRINGE SUB-Q (09:34)
[2019-08-15] MEDS: DOCUSATE SODIUM 100 MG CAPSULE PO (09:34)
[2019-08-15 10:00] VITALS: BP 134/78; PULSE 72; RESP 18; TEMP 36.9; O2SAT 99
--- NOTE | 2019-08-15 10:14 | PM.DS ---
DS: Diagnosis Admitting Diagnosis Admitting Diagnosis: Calculus of gallbladder with acute cholecystitis with obstruction Discharge Diagnosis (1) Obstructive sleep apnea: Onset Date: Unknown Code(s): G47.33 - Obstructive sleep apnea (adult) (pediatric) Status: Acute Assessment and Plan: Patient will resume using her home set up for sleep apnea. Discussed with her that weight loss may allow her to be retested and stop using it if she gets down far enough. (2) Hx of laparoscopic gastric banding: Onset Date: ~2013 Code(s): Z98.84 - Bariatric surgery status Status: Acute Assessment and Plan: Encourage patient to seek consultation with the bariatric surgeon regarding whether not lap band should be removed if she is not using it. Also, she could asked him about studying it and beginning to use it in order to lose weight down to less than 30 BMI. I suggested that she consider a consult with the bariatric service at [facility]/ [facility] surgeons. (3) Elevated liver enzymes: Onset Date: ~08/13/19 Code(s): R74.8 - Abnormal levels of other serum enzymes Status: Acute Assessment and Plan: Recommend recheck of AST L & ALT in 1-2 weeks. These did improve slightly overnight after her cholecystectomy. (4) Elevated blood pressure reading: Onset Date: ~03/2019 Code(s): R03.0 - Elevated blood-pressure reading, without diagnosis of hypertension Status: Acute Assessment and Plan: This was elevated several times during her admission, but whether not she is truly hypertensive remains to be seen. Patient will follow up with Dr. Duque regarding further treatment and monitoring. (5) UTI (urinary tract infection), uncomplicated: Onset Date: ~08/12/19 Code(s): N39.0 - Urinary tract infection, site not specified Status: Acute Assessment and Plan: Patient received 36 hours of Zosyn IV during her hospital stay. This was stopped after the preop does at the time of her cholecystectomy on 08/14/2019. I then start her on Bactrim DS 1 tab b.i.d. and she got 1 dose the evening of 08/14/2019 Home with 4 more tabs of Bactrim DS to complete treatment. DS: Summary Hospital Course Reason for hospitalization: acute cholecystitis with cholelithiasis and mild biliary obstruction Hospital Course: Patient presented to the emergency room with acute onset of upper abdominal, right upper quadrant, and right scapular discomfort. Elevated white count was present. Ultrasound showed stones in the gallbladder with gallbladder wall thickening. Patient was admitted and placed on IV antibiotics. Ultrasound confirmed thickened gallbladder wall and gallstones. She was treated with Zosyn and then we were able to place her on surgery schedule and she underwent laparoscopic cholecystectomy on 08/14/2019. She had an unremarkable recovery overnight. She was not taking anything for pain the morning following the surgery she was tolerating a low-fat diet. She did have a UTI see below. I did not give her further IV antibiotics after her surgery but did start her on Bactrim DS which she will complete a total of 3 day course for her E coli UTI. The sensitivities on the culture did show that the E coli present in the culture was sensitive to Bactrim DS. Patient to be discharged on a low-fat diet. I spoke with her extensively about getting a consultation from a bariatric surgeon regarding her indwelling lap band. She will consider calling a bariatric surgeon and getting a consultation with regard to checking this further. It may be that if she is not going to use it that it should be removed at some point. I did encourage her to consider having them check it and see if it is still functional. Perhaps ideally she would perhaps try to use it to help her lose weight down to a BMI of 30 and then possibly have it removed. See the various
--- NOTE | 2019-08-15 10:20 | PC.NURSE ---
Spoke with Dr. Conner about discharge. He said patient is okay for discharge from his standpoint.
--- NOTE | 2019-08-15 14:17 | PM.IMPN ---
Progress Note: A&P Assessment and Plan (1) Cholelithiasis with acute cholecystitis with biliary obstruction: Onset Date: 08/13/19 Code(s): K80.01 - Calculus of gallbladder with acute cholecystitis with obstruction Status: Acute Assessment and Plan: 08/15/19 14:17 Patient is 63-year-old female with no significant past medical history other than elevated blood pressure without history of hypertension patient was awakened early this morning with abdominal pain she came to emergency department patient is found to have acute cholecystitis seen by general surgery team and planned to have a cholecystectomy tomorrow, present time patient denies any complaint of chest pain shortness of breath, palpitation fever or chills, she did have some dry heaves but no vomiting. Patient had a lap choly yesterday, today patient is feeling much better denies any abdominal pain nausea or vomiting fever or chills, patient UA showed bacteriuria however patient any complaints of dysuria frequency of urination or lower abdominal pain most likely patient has asymptomatic bacteriuria and does not need any antibiotics patient does not have a history of diabetes, patient is being discharged home per surgery (2) Elevated blood pressure reading: Onset Date: ~03/2019 Code(s): R03.0 - Elevated blood-pressure reading, without diagnosis of hypertension Status: Acute Assessment and Plan: Patient with elevated blood pressure without history of hypertension her primary care physician is aware and has spoken with the patient down the road patient will need blood pressure medication, continue to monitor and plan accordingly, denies any chest pain shortness of breath palpitation or dizziness, today patient blood pressure is more to baseline Subjective Date/time seen: 08/15/19 14:17 Patient is 63-year-old female with no significant past medical history other than elevated blood pressure without history of hypertension patient was awakened early this morning with abdominal pain she came to emergency department patient is found to have acute cholecystitis seen by general surgery team and planned to have a cholecystectomy tomorrow, present time patient denies any complaint of chest pain shortness of breath, palpitation fever or chills, she did have some dry heaves but no vomiting. Patient had a lap choly yesterday today patient is feeling much better denies any abdominal pain nausea or vomiting fever or chills, patient UA showed bacteriuria however patient any complaints of dysuria frequency of urination or lower abdominal pain most likely patient has asymptomatic bacteriuria and does not need any antibiotics patient does not have a history of diabetes Review of Systems Review of Systems: All systems reviewed & are unremarkable except as noted in HPI and below Exam Narrative: Exam Narrative: Moderately obese Const: General: comfortable and no acute distress HENMT: General nose exam: Normal nares present Mouth: Yes moist mucous membranes Eyes: General: appearance normal, both eyes and all related structures Sclera: sclerae normal Neck: Neck: supple Resp: Effort & Inspection: normal respiratory effort Auscultation: clear to auscultation bilaterally Cardio: Rate: regular rate Rhythm: regular rhythm GI: Auscultation: normal bowel sounds Skin: General skin exam: normal color and no rashes or lesions noted Neuro: Speech: normal speech Sensory Exam: normal sensation Extrem: General: normal to inspection Psych: Affect: Anxious affect present Objective Data Vital Signs Vital Signs: Vital Signs - 24 hr 08/14/19 16:14 08/14/19 16:20 08/14/19 16:30 Temperature 97.2 F L Pulse Rate 66 64 68 Respiratory Rate 14 15 16 Blood Pressure 147/84 H 151/89 H 132/88 Pulse Oximetry 100 97 98 08/14/19 16:45 08/14/19 17:00 08/14/19 17:15 Temperature Pulse Rate 61 60 61 Respiratory Rate 15 12 14 Blood Pressure 136/89 141/86 H
== END 2019-08-15 11:22 | disposition home or self-care (01) | DRG 418 ==
LOC: ANHED 11:12 → ANH2MED 12:06
PROVIDERS: Admitting Provider Surgery; Emergency Provider Emergency Medicine; PCP Internal Medicine; Visit Provider Surgery
PROC: 0FT44ZZ Resection of Gallbladder, Percutaneous Endoscopic Approach (ICD-10-PCS; CPT 47562; principal; 2019-08-14 14:00)
DX: K80.01 Calculus of gallbladder with acute cholecystitis with obstruction (principal); N39.0 Urinary tract infection, site not specified; Z28.21 Immunization not carried out because of patient refusal; Z98.84 Bariatric surgery status; M19.90 Unspecified osteoarthritis, unspecified site; K44.9 Diaphragmatic hernia without obstruction or gangrene; Z87.19 Personal history of other diseases of the digestive system; K58.9 Irritable bowel syndrome, unspecified; I34.1 Nonrheumatic mitral (valve) prolapse; E78.2 Mixed hyperlipidemia; G47.33 Obstructive sleep apnea (adult) (pediatric); R03.0 Elevated blood-pressure reading, without diagnosis of hypertension; Z86.11 Personal history of tuberculosis; Z87.891 Personal history of nicotine dependence; E66.9 Obesity, unspecified
CPT/HCPCS: 36415; 74177; 76705; 80048; 80053; 80076; 81001; 83690; 83735; 85025; 85027; 86850; 86900; 86901; 87077; 87086; 87088; 87186; 88304; 93005; 96361; 96365; 96375; 99285; A9270; J1100; J1170; J1650; J2250; J2405; J2543; J2704; J2710; J3010; J7030; J7120; Q9967

== ENCOUNTER 2019-08-30 10:12 | Outpatient (CLI) | payer MEDICARE, BC, SELFPAY ==
[2019-08-30 11:12] LABS: Alanine Aminotransferase 30 U/L (4-35); Albumin Level 4.4 g/dL (3.5-5.1); Alkaline Phosphatase 101 U/L (38-126); Aspartate Amino Transferase 26 U/L (14-36); Bilirubin,Total 0.5 mg/dL (0.2-1.3)
== END 2019-08-30 10:13 | disposition home or self-care (01) ==
LOC: ANHLAB 10:14
PROVIDERS: PCP Internal Medicine; Visit Provider Nurse Practitioner Family
DX: K80.10 Calculus of gallbladder with chronic cholecystitis without obstruction (principal)
CPT/HCPCS: 36415; 80076

== ENCOUNTER 2019-11-07 15:00 | Outpatient (CLI) | payer MEDICARE, BC, SELFPAY ==
[2019-11-07 15:28] LABS: Add Urine Microscopic? YES; Appearance Urine Clear (Clear); Bilirubin Urine Negative (Negative); Blood Urine Negative (Negative); Color Urine Yellow (Yellow); Glucose Urine UA Negative (Negative); Ketones Urine Negative (Negative); Leukocyte Esterase Ur 2+ LEU/UL (Negative); Mucus Urine Rare /lpf; Nitrate Urine Negative (Negative); Protein Urine 1+ mg/dL (Negative); RBC Urine 0-2 /hpf (0-2); Squamous Epithelial Cell Urine Rare /hpf (Few); Urobilinogen Urine Negative mg/dL (<2.0)
== END 2019-11-07 15:01 | disposition home or self-care (01) ==
PROVIDERS: PCP Internal Medicine; Visit Provider Internal Medicine
DX: R30.0 Dysuria (principal)
CPT/HCPCS: 81001

== ENCOUNTER 2019-12-11 09:30 | Outpatient (CLI) | payer MEDICARE, BC, SELFPAY ==
[2019-12-11 10:43] LABS: Blood Urea Nitrogen 15 mg/dL (7-17); Calcium 9.1 mg/dL (8.4-10.2); Carbon Dioxide 29 mmol/L (22-30); Chloride 104 mmol/L (98-107); Cholesterol 221 mg/dL (0-200); Estimated Glomerular Filt Rate > 60; Glucose 109 mg/dL (65-105); HDL Direct 54 mg/dL; Potassium 4.1 mmol/L (3.4-5.0); Sodium 137 mmol/L (137-145); Triglycerides 152 mg/dL (<150)
[2019-12-11 10:55] LABS: LDL Cholesterol Direct 112 mg/dL
[2019-12-11 11:10] LABS: Vitamin D 25 Hydroxy 35.2 ng/mL
== END 2019-12-11 09:31 | disposition home or self-care (01) ==
PROVIDERS: PCP Internal Medicine; Visit Provider Internal Medicine
DX: I10 Essential (primary) hypertension (principal); E78.2 Mixed hyperlipidemia; E55.9 Vitamin D deficiency, unspecified
CPT/HCPCS: 36415; 80048; 80061; 82306

== ENCOUNTER → 2020-01-29 09:54 | Outpatient (CLI) | payer MEDICARE, BC, SELFPAY ==
--- NOTE | ~2020-01-29 | CT_ITS ---
EXAMINATION: CT abdomen pelvis w con DATE: 01/29/2020 10:33 INDICATION: Periumbilical abdominal pain, cramping. History of the left band, appendectomy and cholec ystectomy. TECHNIQUE: Computed tomography (CT) of the abdomen and pelvis was performed with 100 cc Omnipaque 350 intravenous contrast. Automated exposure control and iterative reconstruction technique were employe d. Exam dose: 1057.85 mGy-cm total exam DLP. COMPARISON: 08/13/2019 CT abdomen pelvis FINDINGS: The lung bases are clear of infiltrate or consolidation. Normal heart size. No pericardial or pleural effusion. 11 mm hepatic cyst. The liver is otherwise unremarkable. Status post cholecystectomy. No intrahepatic or extrahepatic bile duct dilatation. No pancreatic duct dilatation. No pancreatic mass lesion or calcification. Normal splenic size. Normal morphology of the adrenal glands. Lower pole 5 mm right renal cyst. The kidneys are otherwise unremarkable. No urinary tract calculus o r hydroureteronephrosis. Normal caliber of the abdominal aorta. No intraperitoneal or retroperitoneal or pelvic mass lesion or adenopathy or ascites. The urinary bladder, uterus and adnexal areas are unremarkable. Lap band is noted. Diverticulosis of the left colon; no CT evidence of diverticulitis. 4.4 x 6.7 x 5.8 cm tall umbilical hernia containing fat and nonobstructed none strangulate and small bowel. There is degenerative change of the thoracic and lumbar spine. No suspicious osteolytic or osteoblast ic lesions are noted. IMPRESSION: Umbilical hernia containing nonobstructed nonstrangulated small bowel Status post cholecystectomy LAP-BAND Diverticulosis of the colon Reviewed, dictated and finalized at [facility]. Reviewed, dictated and finalized at [facility]. IMPRESSION: Umbilical hernia containing nonobstructed nonstrangulated small emperatriz wel Status post cholecystectomy LAP-BAND Diverticulosis of the colon
[2020-01-29 10:21] LABS: Estimated Glomerular Filt Rate > 60
== END ==
PROVIDERS: PCP Internal Medicine; Visit Provider Surgery
DX: K57.30 Diverticulosis of large intestine without perforation or abscess without bleeding (principal); K42.9 Umbilical hernia without obstruction or gangrene; Z90.49 Acquired absence of other specified parts of digestive tract
CPT/HCPCS: 36415; 74177; Q9967

== ENCOUNTER 2020-02-26 01:05 | Outpatient (CLI) | payer MEDICARE, BC, SELFPAY ==
[2020-02-26 20:48] LABS: SARS-CoV-2 RNA PCR Negative
== END 2020-02-26 01:06 | disposition home or self-care (01) ==
LOC: ANHCOVIDDT 01:06
PROVIDERS: PCP Internal Medicine; Visit Provider Surgery
DX: Z01.812 Encounter for preprocedural laboratory examination (principal); Z11.59 Encounter for screening for other viral diseases
CPT/HCPCS: 87635; C9803; U0003

== ENCOUNTER 2020-02-28 01:28 | Day surgery (SDC) | payer MEDICARE, BC, SELFPAY ==
[2020-02-21 10:56] VITALS: BMI 39.4
--- NOTE | 2020-02-28 06:33 | WPDHPUPDATE1 ---
History and Physical Update Update Date/Time: 02/28/20 06:33 History and Physical has been reviewed, including an updated exam of the patient. There are NO changes in the patient's condition. Risks, benefits, and alternatives have been discussed and questions answered. Patient agrees to proceed with procedure.
--- NOTE | 2020-02-28 09:01 | WPDANESEPPF ---
Anes - Initial Pre Proc Eval Procedure: Operation Date: 02/28/20 10:30 Proposed Procedures p Repair Periumbilical Incisional Hernia With Mesh - Dhruv Morgan MD Date/Time: 02/28/20 09:01 Surgeon: Dhruv Morgan MD Pre Op Diagnosis: Incisional Hernia Patient Data Age: 64 Gender: F Height: 5 ft 4 in Weight: 104.35 kg Allergies Allergy/AdvReac Type Severity Reaction Status Date / Time terbinafine Allergy Mild Hives Verified 02/17/20 10:36 Home Medications Medication Instructions Recorded Confirmed Type minocycline 50 mg tablet 50 mg PO PRN PRN 07/17/19 02/21/20 History IBgard 90 mg PO DAILY 08/13/19 02/21/20 History Imodium Multi-Symptom Relief 1 tablet PO DAILY 08/13/19 02/21/20 History cholecalciferol (vitamin D3) 2,000 unit PO DAILY 08/13/19 02/21/20 History [Vitamin D3] Lacto.acidophilus-Bif.animalis 1.5 1 cap PO DAILY 08/30/19 02/21/20 History billion cell capsule aspirin 81 mg tablet,delayed 81 mg PO HS 12/16/19 02/21/20 History release biotin 5,000 mcg disintegrating 5,000 mcg PO DAILY 12/16/19 02/21/20 History tablet cranberry fruit concentrate 250 mg 250 mg PO BID 12/16/19 02/21/20 History chewable tablet glucosamine sulfate 500 mg tablet 500 mg PO BID 01/20/20 02/21/20 History hyoscyamine sulfate 0.375 mg PO DAILY 02/21/20 02/21/20 History Patient hx anesthesia problems: none Family hx anesthesia problems: none PMFSH Social History Social History Smoking packs per day: 0.5 Smoking cigarettes per day: 10.0 Years smoked: 20 Smoking pack-years: 10.00 Smoking status: Former smoker Tobacco type: cigarettes Second hand tobacco smoke exposure: No Smoking end date: 06/26/04 Alcohol intake: current Drinks per week: 3 Alcohol use details: BEER Substance use: former Substance use type: marijuana Last use: 1960s Living arrangements: with family Gender identity (if verbalized by the patient): Female Spiritual care concerns: No Agree to blood products: Yes Anes - Eval Final PreProcedure Day of Procedure 02/28/20 09:01 Informed Consent: The patient's anesthetic plan and its attendant risks and benefits were discussed with the patient/family/POA. Questions were solicited and answers provided to the satisfaction of the patient/family/POA.
[2020-02-28] MEDS: LACTATED RINGERS 1,000 ML 30 ML IV CONT ×2 (09:24→11:32)
[2020-02-28] MEDS: ACETAMINOPHEN 500 MG TABLET 1000 MG PO (09:24)
[2020-02-28 09:30] VITALS: BP 138/92; PULSE 84; RESP 16; TEMP 37.4; O2SAT 98
--- NOTE | 2020-02-28 09:36 | WPDANESEPPF ---
Anes - Initial Pre Proc Eval Procedure: Operation Date: 02/28/20 10:30 Proposed Procedures p Repair Periumbilical Incisional Hernia With Mesh - Dhruv Morgan MD Date/Time: 02/28/20 09:36 Surgeon: Dhruv Morgan MD Pre Op Diagnosis: Incisional Hernia Patient Data Age: 64 Gender: F Height: 5 ft 4 in Weight: 104.35 kg Allergies Allergy/AdvReac Type Severity Reaction Status Date / Time terbinafine Allergy Mild Hives Verified 02/17/20 10:36 Home Medications Medication Instructions Recorded Confirmed Type minocycline 50 mg tablet 50 mg PO PRN PRN 07/17/19 02/21/20 History IBgard 90 mg PO DAILY 08/13/19 02/21/20 History Imodium Multi-Symptom Relief 1 tablet PO DAILY 08/13/19 02/21/20 History cholecalciferol (vitamin D3) 2,000 unit PO DAILY 08/13/19 02/21/20 History [Vitamin D3] Lacto.acidophilus-Bif.animalis 1.5 1 cap PO DAILY 08/30/19 02/21/20 History billion cell capsule aspirin 81 mg tablet,delayed 81 mg PO HS 12/16/19 02/21/20 History release biotin 5,000 mcg disintegrating 5,000 mcg PO DAILY 12/16/19 02/21/20 History tablet cranberry fruit concentrate 250 mg 250 mg PO BID 12/16/19 02/21/20 History chewable tablet glucosamine sulfate 500 mg tablet 500 mg PO BID 01/20/20 02/21/20 History hyoscyamine sulfate 0.375 mg PO DAILY 02/21/20 02/21/20 History Patient hx anesthesia problems: none Family hx anesthesia problems: none PMFSH Social History Social History Smoking packs per day: 0.5 Smoking cigarettes per day: 10.0 Years smoked: 20 Smoking pack-years: 10.00 Smoking status: Former smoker Tobacco type: cigarettes Second hand tobacco smoke exposure: No Smoking end date: 06/26/04 Alcohol intake: current Drinks per week: 3 Alcohol use details: BEER Substance use: former Substance use type: marijuana Last use: 1960s Living arrangements: with family Gender identity (if verbalized by the patient): Female Spiritual care concerns: No Agree to blood products: Yes Anes - Eval Final PreProcedure Day of Procedure 02/28/20 09:36 Patient weight: morbidly obese Heart: regular rate and rhythm Lungs: clear to auscultation Airway: Mallampati scale class II Neurological: alert and oriented Last oral intake: >/= 8 hours ASA classification: III Emergent: no Anesthetic plan: proceed Anesthesia type and monitoring: general GIVS (may use LMA if needed) and standard monitoring Informed Consent: The patient's anesthetic plan and its attendant risks and benefits were discussed with the patient/family/POA. Questions were solicited and answers provided to the satisfaction of the patient/family/POA.
[2020-02-28] MEDS: ceFAZolin 2 GM/D5W 50 ML 2 GM/50 ML BAG IVPB (10:11)
--- NOTE | 2020-02-28 11:29 | P.OP_ITS ---
Procedure Note - Detailed Date of procedure: 02/28/20 Pre-op diagnosis: Incisional Hernia Incisional hernia Post-op diagnosis: same Procedure performed: incisional hernia repair with 8.6 cm Parietex underlay mesh Description of procedure: Patient was taken to the operating room and IV sedation was administered. Prep and drape was carried out. The proposed incision along the lower aspect of the umbilicus was marked on the skin. Local anesthetic was infiltrated into the skin and the deeper subcutaneous tissues. Incision was made and dissection was carried down through the skin and to the hernia sac. The sac was then dissected free from the umbilical skin and the surrounding subcutaneous tissues. It was dissected down to its neck. Additional local anesthetic was infiltrated into the neck and the fascia surrounding the neck of the hernia sac. The sac was then amputated at its neck. The subcutaneous was undermined around the hernia defect. Additional local was infiltrated around the fascia. I placed a finger inside the hernia defect and checked for any abdominal wall adhesions in the area. None were found. No other hernias were noted. An 8.6 cm Parietex [place] si[place] was chosen. It was folded and placed in the defect. Once it symmetrically covered the defect, I placed cranial and caudal transfascial sutures of 0 Ethibond. These sutures were placed in such a fashion that, when tied, they would advance the edges of the hernia defect towards 1 another. These sutures were tied and had the desired effect. I then placed right in left lateral transfascial sutures of 0 Ethibond. I then closed the hernia defect with [id number] mattress sutures of 0 Ethibond. Each of these sutures incorporated a bit of mesh as well. The repair looked quite satisfactory. I then infiltrated additional local all around the areas of the repair. The umbilical skin was tacked to the fascia with 3 0 Vicryl suture. The subcutaneous was closed with 3 0 Vicryl. Subcuticular interrupted 4 O Vicryl skin stitches were placed. The skin was then closed with running 4 0 Monocryl subcuticular suture. Wound was dressed with Exofin surgical adhesive. The patient was awakened and taken to recovery in good condition. Counts were correct x2. Implants: 8.6 cm Parietex hernia mesh Anesthesia: MAC and local (0.5% Marcaine with Exparel) Surgeon: Dhruv Morgan MD Reaming Machine Tender: Keiko PARRISH Estimated blood loss (mL): 5 Drains: No Packing: No Pathology: none sent Complications: None Condition: stable Disposition: same day Findings: 30 millimeter hernia defect
[2020-02-28 11:32] VITALS: BP 115/89; PULSE 70; RESP 14; O2SAT 99
[2020-02-28 12:00] VITALS: BP 128/78; PULSE 65; RESP 14
[2020-02-28 12:20] VITALS: BP 124/69; PULSE 68; RESP 14
== END 2020-02-28 12:37 | disposition home or self-care (01) ==
PROVIDERS: PCP Internal Medicine; Visit Provider Surgery
PROC: (CPT 49560; principal; 2020-02-28 10:30)
DX: K43.2 Incisional hernia without obstruction or gangrene (principal); I10 Essential (primary) hypertension; K21.9 Gastro-esophageal reflux disease without esophagitis; G47.33 Obstructive sleep apnea (adult) (pediatric); E66.01 Morbid (severe) obesity due to excess calories; Z68.39 Body mass index [BMI] 39.0-39.9, adult; Z98.84 Bariatric surgery status; Z86.11 Personal history of tuberculosis; Z87.891 Personal history of nicotine dependence; Z79.82 Long term (current) use of aspirin; Z79.899 Other long term (current) drug therapy
CPT/HCPCS: 49560; 49568; A9270; C1781; C9290; J0690; J2250; J2704; J3010; J7120

== ENCOUNTER 2020-03-19 10:52 | Outpatient (CLI) | payer MEDICARE, BC, SELFPAY ==
--- NOTE | ~2020-03-19 | US_ITS ---
EXAMINATION: US soft tissue head and neck DATE: 03/19/2020 11:42 INDICATION: Pain at the midline and right side of the neck. TECHNIQUE: Multiple grayscale and Doppler ultrasound images of the neck were obtained. COMPARISON: None FINDINGS: There is no abnormal mass or lymphadenopathy in the patient's area of concern. IMPRESSION: 1. No abnormal mass or lymphadenopathy in the patient's area of concern in the neck. Reviewed, dictated and finalized at location A.
== END 2020-03-19 10:53 | disposition home or self-care (01) ==
PROVIDERS: PCP Internal Medicine; Visit Provider Nurse Practitioner
DX: M54.2 Cervicalgia (principal)
CPT/HCPCS: 76536

== ENCOUNTER 2020-05-06 10:48 | Outpatient (CLI) | payer MEDICARE, BC, SELFPAY ==
[2020-05-06 11:21] LABS: Add Urine Microscopic? NO; Appearance Urine Clear (Clear); Bilirubin Urine Negative (Negative); Blood Urine Negative (Negative); Color Urine Straw (Yellow); Glucose Urine UA Negative (Negative); Ketones Urine Negative (Negative); Leukocyte Esterase Ur Negative LEU/UL (Negative); Nitrate Urine Negative (Negative); Protein Urine Negative (Negative); Specific Grav Ur 1.008 (1.001-1.035); Urobilinogen Urine Negative mg/dL (<2.0)
== END 2020-05-06 10:49 | disposition home or self-care (01) ==
PROVIDERS: PCP Internal Medicine; Visit Provider Internal Medicine
DX: R10.30 Lower abdominal pain, unspecified (principal)
CPT/HCPCS: 81003

== ENCOUNTER 2020-12-08 08:12 | Outpatient (CLI) | payer MEDICARE, BC, SELFPAY ==
[2020-12-08 08:45] LABS: Add Urine Microscopic? YES; Appearance Urine Clear (Clear); Bilirubin Urine Negative (Negative); Blood Urine Negative (Negative); Color Urine Yellow (Yellow); Glucose Urine UA Negative (Negative); Ketones Urine Negative (Negative); Leukocyte Esterase Ur 1+ LEU/UL (Negative); Nitrate Urine Negative (Negative); Protein Urine Negative (Negative); RBC Urine 0-2 /hpf (0-2); Specific Grav Ur 1.011 (1.001-1.035); Urobilinogen Urine Negative mg/dL (<2.0); WBC Urine 0-3 /hpf
== END 2020-12-08 08:13 | disposition home or self-care (01) ==
PROVIDERS: PCP Internal Medicine; Visit Provider Internal Medicine
DX: R30.0 Dysuria (principal)
CPT/HCPCS: 81001

== ENCOUNTER 2020-12-16 13:21 | Outpatient (CLI) | payer MEDICARE, BC, SELFPAY ==
[2020-12-16 14:11] LABS: Add Urine Microscopic? YES; Appearance Urine Clear (Clear); Bilirubin Urine Negative (Negative); Blood Urine Negative (Negative); Color Urine Yellow (Yellow); Glucose Urine UA Negative (Negative); Ketones Urine Negative (Negative); Leukocyte Esterase Ur Negative LEU/UL (Negative); Mucus Urine Rare /lpf; Nitrate Urine Negative (Negative); Protein Urine Negative (Negative); RBC Urine 0-2 /hpf (0-2); Specific Grav Ur 1.012 (1.001-1.035); Squamous Epithelial Cell Urine Rare /hpf (Few); Urobilinogen Urine Negative mg/dL (<2.0); WBC Urine 0-3 /hpf
[2020-12-16 14:31] LABS: Anion Gap 8 mmol/L (8-16); Blood Urea Nitrogen 15 mg/dL (7-17); Calcium 9.1 mg/dL (8.4-10.2); Carbon Dioxide 27 mmol/L (22-30); Chloride 106 mmol/L (98-107); Estimated Glomerular Filt Rate > 60; Glucose 85 mg/dL (65-105); Potassium 4.2 mmol/L (3.4-5.0); Sodium 141 mmol/L (137-145)
[2020-12-16 14:56] LABS: Vitamin D 25 Hydroxy 50.3 ng/mL
== END 2020-12-16 13:22 | disposition home or self-care (01) ==
PROVIDERS: PCP Internal Medicine; Visit Provider Internal Medicine
DX: R30.0 Dysuria (principal); R03.0 Elevated blood-pressure reading, without diagnosis of hypertension; E55.9 Vitamin D deficiency, unspecified
CPT/HCPCS: 36415; 80048; 81001; 82306

== ENCOUNTER 2021-04-13 08:57 | Outpatient (CLI) | payer MEDICARE, BC, SELFPAY ==
[2021-04-13 09:36] LABS: Basophils Absolute Auto 0.1 K/mm3 (0.0-0.1); Basophils Percent Auto 1.5 % (0.2-1.2); Eosinophils Absolute Auto 0.3 K/mm3 (0-0.3); Eosinophils Percent Auto 5.1 % (0-4.4); Hematocrit 40.7 % (37.0-47.0); Hemoglobin 13.7 g/dL (12.0-15.0); Immature Granulocyte Absolute 0.01 K/mm3 (0.00-0.031); Immature Granulocyte Percent A 0.2 % (0-0.5); Lymphocytes Absolute Auto 2.05 K/mm3 (0.9-3.2); Lymphocytes Percent Auto 34.9 % (18.3-44.2); Mean Corpuscular HGB Conc 33.7 g/dl (32-36); Mean Corpuscular Hemoglobin 31.4 pg (26-34); Mean Corpuscular Volume 93.3 fl (80-100); Mean Platelet Volume 10.4 fl (7.4-10.4); Monocytes Absolute Auto 0.4 K/mm3 (0.1-0.6); Monocytes Percent Auto 6.1 % (2.6-8.5); Neutrophils Absolute Auto 3.1 K/mm3 (1.3-6.7); Neutrophils Percent Auto 52.2 % (45.5-73.1); Platelet Count Result 216 k/mm3 (150-375); Red Blood Count 4.36 M/mm3 (4.2-5.4); Red Cell Distribution Width 12.7 % (11.5-14.5); White Blood Count 5.9 K/mm3 (4.5-10.0)
[2021-04-13 09:47] LABS: Alanine Aminotransferase 27 U/L (4-35); Albumin Level 4.4 g/dL (3.5-5.1); Alkaline Phosphatase 119 U/L (38-126); Anion Gap 9 mmol/L (8-16); Aspartate Amino Transferase 32 U/L (14-36); Bilirubin,Total 0.5 mg/dL (0.2-1.3); Blood Urea Nitrogen 18 mg/dL (7-17); CRP < 0.5 mg/dL (<1.0); Calcium 9.3 mg/dL (8.4-10.2); Carbon Dioxide 25 mmol/L (22-30); Chloride 107 mmol/L (98-107); Cholesterol 202 mg/dL (0-200); Estimated Glomerular Filt Rate > 60; Glucose 104 mg/dL (65-110); HDL Direct 54 mg/dL; Magnesium 2.1 mg/dL (1.6-2.3); Phosphorus 3.4 mg/dL (2.5-4.5); Potassium 3.9 mmol/L (3.4-5.0); Sodium 141 mmol/L (137-145); Triglycerides 110 mg/dL (<150); Uric Acid 5.1 mg/dL (2.5-7.5)
[2021-04-13 09:49] LABS: Hemoglobin A1C 5.7 % (<5.7)
[2021-04-13 09:53] LABS: Add Urine Microscopic? YES; Appearance Urine Clear (Clear); Bilirubin Urine Negative (Negative); Blood Urine Negative (Negative); Color Urine Yellow (Yellow); Glucose Urine UA Negative (Negative); Ketones Urine Negative (Negative); Leukocyte Esterase Ur 2+ LEU/UL (Negative); Mucus Urine Rare /lpf; Nitrate Urine Negative (Negative); Protein Urine Negative (Negative); Squamous Epithelial Cell Urine Rare /hpf (Few); Urobilinogen Urine Negative mg/dL (<2.0)
[2021-04-13 09:55] LABS: Iron 119 ug/dL (37-170)
[2021-04-13 09:57] LABS: LDL Cholesterol Direct 104 mg/dL
[2021-04-13 10:04] LABS: Percent Iron Saturation 30 % (20-50)
[2021-04-13 10:14] LABS: Creatinine Urine 131.9 mg/dL
[2021-04-13 10:19] LABS: MALB Creatinine Ratio 8.1 mg/g (0-30); Microalbumin Urine Random 10.7 mg/L (0-16.7)
[2021-04-13 10:39] LABS: Prothrombin Time 12.7 Seconds (11.1-14.7)
[2021-04-13 10:51] LABS: Folic Acid 18.8 ng/mL (2.76->20)
[2021-04-13 11:12] LABS: Free T4 Free Thyroxine 0.95 ng/mL (0.78-2.19); Vitamin D 25 Hydroxy 60.5 ng/mL
[2021-04-16 04:36] LABS: Insulin Level Total 5.1 uIU/mL (<=19.6)
[2021-04-16 05:29] LABS: GGT 14 U/L (3-65)
[2021-04-16 06:52] LABS: Triiodothyronine T3 Free 2.9 pg/mL (2.3-4.2)
== END 2021-04-13 08:58 | disposition home or self-care (01) ==
LOC: ANHLAB 09:02
PROVIDERS: PCP Internal Medicine
DX: E53.8 Deficiency of other specified B group vitamins (principal); E03.9 Hypothyroidism, unspecified; E55.9 Vitamin D deficiency, unspecified; E78.5 Hyperlipidemia, unspecified; E79.0 Hyperuricemia without signs of inflammatory arthritis and tophaceous disease; K76.0 Fatty (change of) liver, not elsewhere classified; Z51.81 Encounter for therapeutic drug level monitoring; Z79.899 Other long term (current) drug therapy; E61.1 Iron deficiency; E88.81 Metabolic syndrome and other insulin resistance; R73.9 Hyperglycemia, unspecified
CPT/HCPCS: 36415; 80053; 80061; 81001; 82043; 82306; 82607; 82746; 82977; 83036; 83525; 83540; 83550; 83735; 84100; 84439; 84443; 84481; 84550; 85025; 85610; 86140; 87086; 87088

== ENCOUNTER 2021-04-25 08:54 | Emergency (ER) | payer MEDICARE, BC, SELFPAY ==
[2021-04-25] VITALS (8 sets, daily range): BP systolic 103–132; BP diastolic 54–93; PULSE 73–80; RESP 12–31; TEMP 36.3; O2SAT 85–100
[2021-04-25] MEDS: EPINEPHrine HCL INJ 1 MG/ML AMPUL (09:06)
--- NOTE | 2021-04-25 09:07 | ED.ALLEREA ---
HPI - Allergic Reaction General Chief complaint: Allergic Reaction Stated complaint: swelling to lips Time Seen by Provider: 04/25/21 08:57 Source: patient History of Present Illness HPI narrative: Patient presents with concern for allergic reaction. In short she felt small amount of swelling in her lips last night but did not think much of it this morning she woke up and was having hives all over her body associated with diffuse itching. She feels her lip swelling is getting worse and she feels tightness in her chest. She took Benadryl at home went to an urgent care was given Solu-Medrol and was referred to the ER for further evaluation. Patient has not had reactions like this in the past she denies any family history of reactions like this. She is allergic to terbinafine but is not aware of other allergies. She denies globus sensation or wheezing she denies any nausea or vomiting Related Data Home Medications Medication Instructions Recorded Confirmed IBgard 90 mg PO DAILY 08/13/19 12/22/20 cholecalciferol (vitamin D3) 2,000 unit PO DAILY 08/13/19 12/22/20 [Vitamin D3] loperamide-simethicone [Imodium 1 tablet PO DAILY 08/13/19 12/22/20 Multi-Symptom Relief] aspirin 81 mg tablet,delayed 81 mg PO HS 12/16/19 12/22/20 release biotin 5,000 mcg disintegrating 5,000 mcg PO DAILY 12/16/19 12/22/20 tablet cranberry fruit concentrate 250 mg 250 mg PO BID 12/16/19 12/22/20 chewable tablet ascorbic acid (vitamin C) 100 mg 100 mg PO DAILY 12/22/20 12/22/20 chewable tablet glucosamine-chondroitin 250 mg-200 1 tablet PO ONCE tablet 12/22/20 12/22/20 mg tablet Allergies Allergy/AdvReac Type Severity Reaction Status Date / Time terbinafine Allergy Mild Hives Verified 12/22/20 08:12 Review of Systems Review of Systems: CONSTITUTIONAL: Denies fever, chills, or sweats. EYES: Denies visual changes, redness, or discharge. ENT: Denies rhinorrhea, congestion, sore throat, or otalgia. CARDIOVASCULAR: Denies chest pain, palpitations, or edema. RESPIRATORY: Denies cough or dyspnea. GASTROINTESTINAL: Denies abdominal pain, nausea, vomiting, or diarrhea. GENITOURINARY: Denies dysuria or hematuria. SKIN: Reports diffuse urticaria and itching MUSCULOSKELETAL: Denies back pain, joint pain, or myalgia. NEUROLOGIC: Denies headache, numbness, dizziness, or weakness. PSYCHIATRIC: Denies anxiety or depression. All systems reviewed & are unremarkable except as noted in HPI and below PMFSH Past Medical History Medical History Ankle fracture, right Arthritis Elevated blood pressure reading (~03/2019) Hammer toes, bilateral Hiatal hernia History of gastroesophageal reflux (GERD) History of rectal polyps Hx of colonic polyps Irritable bowel Sleep apnea Tuberculosis age 1 Surgical History Surgical History Bunion H/O shoulder surgery Hammer toe History of ankle surgery History of appendectomy History of carpal tunnel surgery History of gastric bypass lap band procedure Hx laparoscopic cholecystectomy Jul 2019 Status post hernia repair 02/28/2020: incisional hernia repair with 8.6 perietex underlay mesh. Family History Family History Mother Family history of multiple sclerosis Family history of diabetes mellitus in first degree relative Acute myocardial infarction, Onset Age: 79 Diabetes mellitus Family history of cardiovascular disease Heart attack Multiple sclerosis Father Acute myocardial infarction Heart attack Sibling Diabetes mellitus Other Tuberculosis Social History Social History Smoking packs per day: 0.5 Smoking cigarettes per day: 10.0 Years smoked: 20 Smoking pack-years: 10.00 Smoking status: Never smoker Tobacco type: cigarettes Second hand tobacco smoke expo
--- NOTE | 2021-04-25 09:15 | ECG_ITS ---
Measurements Intervals [place] Rate: 74 P: 27 MT: 178 QRS: -23 QRSD: 118 T: 15 QT: 422 QTc: 471 Interpretive Statements SINUS RHYTHM LOW QRS VOLTAGE IN PRECORDIAL LEADS BORDERLINE T WAVE ABNORMALITY- INFERIOR LEADS BASELINE ARTIFACT- I, II, AVR, V1, V3-V6 BORDERLINE ECG Electronically Signed On 04-25-2021 14:57:55 CDT by Eric Monroy D.O.
== END 2021-04-25 11:55 | disposition home or self-care (01) ==
PROVIDERS: Emergency Provider Emergency Medicine; PCP Internal Medicine
DX: T78.2XXA Anaphylactic shock, unspecified, initial encounter (principal); M19.90 Unspecified osteoarthritis, unspecified site; K21.9 Gastro-esophageal reflux disease without esophagitis; G47.30 Sleep apnea, unspecified; K58.9 Irritable bowel syndrome, unspecified; Z87.19 Personal history of other diseases of the digestive system; Z86.010 Personal history of colon polyps; Z79.82 Long term (current) use of aspirin; Z98.84 Bariatric surgery status; Z87.891 Personal history of nicotine dependence; R94.31 Abnormal electrocardiogram [ECG] [EKG]
CPT/HCPCS: 93005; 96372; 99283; J0171

== ENCOUNTER 2021-04-26 08:50 | Inpatient (IN) | payer MEDICARE, BC, SELFPAY ==
[2021-04-26] VITALS (28 sets, daily range): BP systolic 105–140; BP diastolic 59–109; PULSE 68–109; RESP 15–25; TEMP 36.2–36.9; O2SAT 96–100; BMI 39.1
--- NOTE | ~2021-04-26 | XR_ITS ---
EXAMINATION: XR chest 2V DATE: 04/26/2021 10:56 INDICATION: Anaphylaxis TECHNIQUE: PA and lateral views of the chest are obtained. COMPARISON: 03/31/2017 FINDINGS: The lungs are free of acute opacities. There is no pleural effusion or pneumothorax. The ca rdiomediastinal silhouette is normal. There is moderate thoracic spondylosis. IMPRESSION: 1. No acute cardiopulmonary abnormality. Reviewed, dictated and finalized at location B.
--- NOTE | 2021-04-26 09:02 | ED.GENADULT ---
HPI - General Adult General Chief complaint: Allergic Reaction Stated complaint: Hives, Eye Swelling Time Seen by Provider: 04/26/21 09:01 Source: patient and family Mode of arrival: ambulatory Limitations: no limitations History of Present Illness HPI narrative: Patient is return to the emergency room after is being seen yesterday for further evaluation of hives and itching. She states that this started Monday evening she has been treated with IM Solu-Medrol, Pepcid and Benadryl which she last took at 830 this morning. She also took 50 mg of prednisone at 3:30 AM because the itching was so bad. The rash has spread to her face and her back and now her lower extremities. She states that her lip swelling has improved, she has no vocal changes but she had some chest heaviness yesterday and today. The offending agent has not been identified she feels that it was something at a pot luck that they attended on Monday. Onset (ago): day(s) Location: face, neck, chest, back, abdomen, pelvis, genitals and upper extremity Severity scale (1-10): 8 Pain Consistency: constant Relieving factors: none Associated symptoms: denies other symptoms Related Data Home Medications Medication Instructions Recorded Confirmed IBgard 90 mg PO DAILY 08/13/19 12/22/20 cholecalciferol (vitamin D3) 2,000 unit PO DAILY 08/13/19 12/22/20 [Vitamin D3] loperamide-simethicone [Imodium 1 tablet PO DAILY 08/13/19 12/22/20 Multi-Symptom Relief] aspirin 81 mg tablet,delayed 81 mg PO HS 12/16/19 12/22/20 release biotin 5,000 mcg disintegrating 5,000 mcg PO DAILY 12/16/19 12/22/20 tablet cranberry fruit concentrate 250 mg 250 mg PO BID 12/16/19 12/22/20 chewable tablet ascorbic acid (vitamin C) 100 mg 100 mg PO DAILY 12/22/20 12/22/20 chewable tablet glucosamine-chondroitin 250 mg-200 1 tablet PO ONCE tablet 12/22/20 12/22/20 mg tablet Allergies Allergy/AdvReac Type Severity Reaction Status Date / Time terbinafine Allergy Mild Hives Verified 04/26/21 08:59 Review of Systems Review of Systems: All systems reviewed & are unremarkable except as noted in HPI and below PMFSH Past Medical History Medical History Ankle fracture, right Arthritis Elevated blood pressure reading (~03/2019) Hammer toes, bilateral Hiatal hernia History of gastroesophageal reflux (GERD) History of rectal polyps Hx of colonic polyps Irritable bowel Sleep apnea Tuberculosis age 1 Surgical History Surgical History Bunion H/O shoulder surgery Hammer toe History of ankle surgery History of appendectomy History of carpal tunnel surgery History of gastric bypass lap band procedure Hx laparoscopic cholecystectomy Jul 2019 Status post hernia repair 02/28/2020: incisional hernia repair with 8.6 perietex underlay mesh. Family History Family History Mother Family history of multiple sclerosis Family history of diabetes mellitus in first degree relative Acute myocardial infarction, Onset Age: 79 Diabetes mellitus Family history of cardiovascular disease Heart attack Multiple sclerosis Father Acute myocardial infarction Heart attack Sibling Diabetes mellitus Other Tuberculosis Social History Social History Smoking packs per day: 0.5 Smoking cigarettes per day: 10.0 Years smoked: 20 Smoking pack-years: 10.00 Smoking status: Never smoker Tobacco type: cigarettes Second hand tobacco smoke exposure: No Smoking end date: 06/26/04 Alcohol intake: current Drinks per week: 3 Alcohol use details: BEER Substance use: former Substance use type: marijuana Last use: 1960s Gender identity (if verbalized by the patient): Female Spiritual care concerns: No Agree to blood products: Yes Exam C
[2021-04-26] MEDS: SODIUM CHLORIDE 0.9% IV 1,000 ML 999 ML IV CONT ×2 (09:28→10:56)
[2021-04-26] MEDS: methylPREDNISolone SOD SUCC 125 MG VIAL IV PUSH (09:29)
[2021-04-26] MEDS: FAMOTIDINE 20 MG/2 ML VIAL IV PUSH ×2 (09:29→20:29)
[2021-04-26] MEDS: EPINEPHrine HCL INJ 1 MG/ML AMPUL 0.3 MG IM (09:33)
--- NOTE | 2021-04-26 09:54 | PC.NURSE ---
Pt c/o swelling around eyes and upper lip. PA and ED physician notified. Awaiting new orders.
[2021-04-26] MEDS: hydrOXYzine HCL 25 MG TABLET PO (10:04)
--- NOTE | 2021-04-26 12:33 | ADMGEN ---
This patient, Ilda Prather, was admitted to IMU Room 212-01. Patient/family oriented to hospital policies and general routines including ID bracelet, bed and alarms, visiting hours, pain management, procedures, bathroom and other care routines, personal items, smoking policy, room service/diet, and visiting hours. Information on how to activate the Rapid Response Team has been discussed. Patient/Family are encouraged to report perceived risks to care and to ask questions if they do not understand what they are told or what they should do.
--- NOTE | 2021-04-26 12:35 | PM.IMHP ---
H&P: HPI History of Present Illness Date/Time: 04/26/21 12:35 Chief Complaint: Hives and facial swelling. Narrative: This is a very pleasant 65-year-old female without any significant medical history presented to the emergency department earlier today from home for evaluation hives and facial swelling. Early in the evening on Monday she felt a fullness in the upper lip and noticed that there was swelling in the area as well as a few hives on her chest. She is soon to that she was exposed to something that she was allergic to the night before when she was at a potluck and sampled several mixed alcoholic beverages containing ingredients that she had never had before. She awoke yesterday morning with worsening swelling of the lips and eyes as well as a diffuse pruritic, urticarial rash and she was sitting in the emergency department where she was treated with diphenhydramine, famotidine, and methylprednisolone. The swelling in her lips improved but later that evening she once again developed worsening of her urticarial rash for which she took Benadryl and prednisone before going to bed. This morning she seemed to have increasing periorbital edema and mild swelling and pruritus of the palms and she return to the emergency department where she reported mild lightheadedness and feelings of tongue fullness for which she was given a dose of epinephrine with perhaps some mild improvement. She is being admitted overnight for closer observation. With further questioning she has had issues with folliculitis over the years and in fact she has a prescription for minocycline that she will take p.r.n. though she has not taken that for several weeks. She recently completed a 7 day course of nitrofurantoin 4 days ago on . She did not have any of the above symptoms while taking that drug however. She was also recently started on topiramate within the last week or so. No personal or family history of similar symptoms. No recent change in soaps, lotions, creams, or laundry detergent. She has not had any new environmental exposures and she denies any recent bug bites. No blistering or ulcerations of the mucosal surfaces. No arthralgias or joint swelling. Review of Systems Review of Systems: Twelve systems were reviewed. No fever, chills, or sweats. Mild lightheadedness. No syncope or near syncope. She denies shortness of breath and dysphagia. No chest pain. She has not had nausea or vomiting. Except as documented, all other systems were reviewed and are negative. [facility] Past Medical History Medical History (Updated 04/26/21 @ 19:37 by Paris Delaney PA-C) Arthritis Essential (primary) hypertension No longer on medication. Gastroesophageal reflux disease Hiatal hernia History of colon polyps History of rectal polyps Irritable bowel Obstructive sleep apnea on CPAP Tuberculosis At age 1, completed treatment. Surgical History Surgical History (Updated 04/26/21 @ 19:32 by Paris Delaney PA-C) History of appendectomy History of bunionectomy of both great toes History of carpal tunnel surgery History of colonoscopy with polypectomy History of hammertoe correction History of incisional hernia repair (02/28/20) With 8.6 perietex underlay mesh. History of laparoscopic adjustable gastric banding (2008) History of laparoscopic cholecystectomy (07/2019) History of open reduction and internal fixation (ORIF) procedure Right ankle. History of repair of right rotator cuff Family History Family History Mother Family history of multiple sclerosis Family history of diabetes mellitus in first degree relative Acute myocardial infarction, Onset Age: 79 Diabetes mellitus Family history of cardiovascular disease Heart attack Multiple sclerosis Father Acute myocardial infarction Heart attack Sibling Diabetes mellitus Other Tuberculosis Social History Social History (Updated 04/26/21 @
[2021-04-26] MEDS: SODIUM CHLORIDE 0.9% IV 1,000 ML 125 ML IV CONT (13:33)
[2021-04-26 14:05] LABS: Basophils Percent Auto 0.3 % (0.2-1.2); Eosinophils Percent Auto 0.1 % (0-4.4); Hematocrit 42.4 % (37.0-47.0); Hemoglobin 14.4 g/dL (12.0-15.0); Immature Granulocyte Absolute 0.02 K/mm3 (0.00-0.031); Immature Granulocyte Percent A 0.2 % (0-0.5); Lymphocytes Absolute Auto 0.59 K/mm3 (0.9-3.2); Lymphocytes Percent Auto 5.8 % (18.3-44.2); Mean Corpuscular Volume 94.2 fl (80-100); Mean Platelet Volume 11.1 fl (7.4-10.4); Monocytes Absolute Auto 0.2 K/mm3 (0.1-0.6); Monocytes Percent Auto 1.6 % (2.6-8.5); Neutrophils Absolute Auto 9.3 K/mm3 (1.3-6.7); Platelet Count Result 211 k/mm3 (150-375); Red Cell Distribution Width 13.1 % (11.5-14.5); White Blood Count 10.1 K/mm3 (4.5-10.0)
[2021-04-26 14:34] LABS: Alanine Aminotransferase 37 U/L (4-35); Albumin Level 3.3 g/dL (3.5-5.1); Alkaline Phosphatase 90 U/L (38-126); Anion Gap 7 mmol/L (8-16); Aspartate Amino Transferase 40 U/L (14-36); Bilirubin,Total 0.5 mg/dL (0.2-1.3); Blood Urea Nitrogen 15 mg/dL (7-17); CRP 6.2 mg/dL (<1.0); Calcium 8.7 mg/dL (8.4-10.2); Carbon Dioxide 22 mmol/L (22-30); Chloride 108 mmol/L (98-107); Estimated CRCL calculation 89 ml/min; Estimated Glomerular Filt Rate > 60; Glucose 168 mg/dL (65-110); Potassium 4.1 mmol/L (3.4-5.0); Sodium 137 mmol/L (137-145)
[2021-04-26 15:29] LABS: Erythrocyte Sedimentation Rate 10 mm/hr (0-20)
--- NOTE | 2021-04-26 16:14 | PC.NURSE ---
Ian wasted with JANINE Bennett
[2021-04-26] MEDS: diphenhydrAMINE HCl INJ 50 MG/ML VIAL IV PUSH (18:00)
[2021-04-26] MEDS: methylPREDNISolone SOD SUCC 125 MG VIAL 60 MG IV PUSH (18:00)
[2021-04-27] VITALS (9 sets, daily range): BP systolic 123–145; BP diastolic 72–91; PULSE 71–82; RESP 16–21; TEMP 36.8–37.4; O2SAT 99
[2021-04-27] MEDS: diphenhydrAMINE HCl INJ 50 MG/ML VIAL 25 MG IV PUSH ×4 (00:15→18:24)
[2021-04-27] MEDS: methylPREDNISolone SOD SUCC 125 MG VIAL 60 MG IV PUSH ×4 (00:15→18:33)
[2021-04-27] MEDS: FAMOTIDINE 20 MG/2 ML VIAL IV PUSH ×2 (08:43→20:44)
--- NOTE | 2021-04-27 09:54 | PM.IMPN ---
Progress Note: A&P Assessment and Plan (1) Angioedema: Code(s): T78.3XXA - Angioneurotic edema, initial encounter Status: Acute Assessment and Plan: Precipitating etiology not clear. Likely some food allergen that she is exposed to. Other drugs that she has been on recently are nitrofurantoin which she finished a course of a week ago. Minocycline which she has been taking intermittently for years. To her meet with she has been on since 1 month. No airway compromise. RANDY ordered which is pending No evidence of ST /TN On methylprednisolone, diphenhydramine and famotidine Will add triamcinolone ointment to apply locally for itching Monitor for next 24 hours symptoms resolving but has not resolved yet. (2) Urticarial rash: Code(s): L50.9 - Urticaria, unspecified Status: Acute Assessment and Plan: Symptoms suggestive of id type hypersensitivity reaction. She is going to follow-up with healthcare business analyst as an outpatient basis Plan for prednisone taper at the time of discharge Subjective Date/time seen: 04/27/21 09:54 Interval history: HPI:This is a very pleasant 65-year-old female without any significant medical history presented to the emergency department earlier today from home for evaluation hives and facial swelling. Early in the evening on Monday she felt a fullness in the upper lip and noticed that there was swelling in the area as well as a few hives on her chest. She is soon to that she was exposed to something that she was allergic to the night before when she was at a potluck and sampled several mixed alcoholic beverages containing ingredients that she had never had before. She awoke yesterday morning with worsening swelling of the lips and eyes as well as a diffuse pruritic, urticarial rash and she was sitting in the emergency department where she was treated with diphenhydramine, famotidine, and methylprednisolone. The swelling in her lips improved but later that evening she once again developed worsening of her urticarial rash for which she took Benadryl and prednisone before going to bed. This morning she seemed to have increasing periorbital edema and mild swelling and pruritus of the palms and she return to the emergency department where she reported mild lightheadedness and feelings of tongue fullness for which she was given a dose of epinephrine with perhaps some mild improvement. She is being admitted overnight for closer observation. With further questioning she has had issues with folliculitis over the years and in fact she has a prescription for minocycline that she will take p.r.n. though she has not taken that for several weeks. She recently completed a 7 day course of nitrofurantoin 4 days ago on . She did not have any of the above symptoms while taking that drug however. She was also recently started on topiramate within the last week or so. No personal or family history of similar symptoms. No recent change in soaps, lotions, creams, or laundry detergent. She has not had any new environmental exposures and she denies any recent bug bites. No blistering or ulcerations of the mucosal surfaces. No arthralgias or joint swelling. Interval history: Still has significant itching. All over her back and her arm. Wheals present in her back. Denies any shortness of breath or wheezing Review of Systems Review of Systems: All systems reviewed & are unremarkable except as noted in HPI and below Exam Narrative: General: Well-developed female sitting up in bed no distress. HEENT: PERRL, EOMI. Sclerae anicteric.Mild periorbital edema. There is some fullness to the upper lip and the area just above that. Compared to the picture on her phone much better. Oral mucosa moist. Oropharynx clear. No edema or ulcerations. Neck: Supple. No lymphadenopathy. No stridor. Respiratory: Lungs are clear to auscultation bilaterally. No wheezing. No respiratory distress Cardiovascular: Regular rate and rhy
[2021-04-27] MEDS: TRIAMCINOLONE ACET 0.1% OINT 15 GM TUBE 1 APPLIC TOPICAL ×2 (12:35→20:44)
--- NOTE | 2021-04-27 18:30 | PC.NURSE ---
This patient, Ilda Prather, was received from IMU room 212 on 04/27/21 at 1830, report received from JANINE Mckeon. Patient/family oriented to unit policies and routines
--- NOTE | 2021-04-27 18:51 | PC.NURSE ---
This patient, Ilda Prather, was transferred to [facility] on 04/27/21 at 1830. Personal belongings sent with patient. Report given to Renetta MEHTA. Appropriate documentation sent with patient.
[2021-04-28] VITALS: BP 127/74; PULSE 64; RESP 16; TEMP 36.3; O2SAT 99
[2021-04-28] MEDS: methylPREDNISolone SOD SUCC 125 MG VIAL 60 MG IV PUSH ×3 (01:25→12:28)
[2021-04-28] MEDS: diphenhydrAMINE HCl INJ 50 MG/ML VIAL 25 MG IV PUSH ×2 (01:25→07:59)
[2021-04-28] MEDS: FAMOTIDINE 20 MG/2 ML VIAL IV PUSH (08:04)
[2021-04-28] MEDS: TRIAMCINOLONE ACET 0.1% OINT 15 GM TUBE 1 APPLIC TOPICAL (08:04)
--- NOTE | 2021-04-28 09:25 | PM.IMPN ---
Progress Note: A&P Assessment and Plan (1) Angioedema: Code(s): T78.3XXA - Angioneurotic edema, initial encounter Status: Acute Assessment and Plan: Precipitating etiology not clear. Likely some food allergen that she is exposed to. Other drugs that she has been on recently are nitrofurantoin which she finished a course of a week ago. Minocycline which she has been taking intermittently for years. To her meet with she has been on since 1 month. No airway compromise. RANDY ordered which is pending No evidence of ST /TN On methylprednisolone, diphenhydramine and famotidine Will add triamcinolone ointment to apply locally for itching Monitor for next 24 hours symptoms resolving but has not resolved yet. (2) Urticarial rash: Code(s): L50.9 - Urticaria, unspecified Status: Acute Assessment and Plan: Symptoms suggestive of id type hypersensitivity reaction. She is going to follow-up with doctor naturopathic as an outpatient basis Plan for prednisone taper at the time of discharge Additional Plan The patient presented to the emergency department today for the 2nd time in 24 hours for evaluation of angioedema around the eyes and lips in addition to a diffuse upper body urticarial rash. Precipitating etiology is not entirely clear. I think it is less likely that she was exposed to something at the pot luck on Monday as her symptoms did not start for almost 24 hours thereafter. She has been taking minocycline intermittently over the years which can cause a lupus-like drug reaction however she has not taken that for a couple of weeks. She was also recently started on topiramate and I suppose this may be a hypersensitivity reaction to that; she has no history of sulfa allergy. Additionally she also recently finished a 7 day course of nitrofurantoin however her symptoms did not start until 2 days after she completed the medication. She has no personal or family history of similar symptoms. There is no airway compromise and her vital signs have been stable. No evidence of SJS/TEN. At this time we will treat her symptoms and she has been started on methylprednisolone, diphenhydramine, and famotidine. I think it would be prudent to place the topiramate on hold as well as the minocycline for now. She was encouraged to follow-up with an doctor naturopathic. Her labs, imaging, and vitals were personally reviewed and nothing significant was noted. Subjective Date/time seen: 04/28/21 09:25 Objective Data Vital Signs Vital Signs: Vital Signs - 24 hr 04/27/21 10:00 04/27/21 15:14 04/27/21 18:45 Temperature 99.3 F 98.2 F Pulse Rate 80 76 73 Respiratory Rate 20 16 Blood Pressure 124/72 123/74 Pulse Oximetry 99 99 04/28/21 00:00 Temperature 97.3 F L Pulse Rate 64 Respiratory Rate 16 Blood Pressure 127/74 Pulse Oximetry 99 Intake/Output Intake/Output: Intake & Output 04/25/21 04/26/21 04/27/21 04/28/21 23:59 23:59 23:59 23:59 Intake Total 2100 1460 550 Output Total 1325 1600 Balance 775 -140 550 Meds/Results Medications: Active Medications Generic Name Dose Route Start Last Admin Trade Name Freq PRN Reason Stop Dose Admin Diphenhydramine HCl 25 mg 04/27/21 00:08 04/28/21 07:59 Diphenhydramine Hcl Inj 50 Mg/Ml Vial IV PUSH 25 mg Q6H PRN Administration Itching Famotidine 20 mg 04/26/21 21:00 04/28/21 08:04 Famotidine 20 Mg/2 Ml Vial IV PUSH 20 mg Q12HR LEV Administration Methylprednisolone Sodium Succinate 60 mg 04/26/21 18:00 04/28/21 06:09 Methylprednisolone Sod Succ 125 Mg Vial IV PUSH 60 mg Q6HR LEV Administration Triamcinolone Acetonide 1 applic 04/27/21 11:00 04/28/21 08:04 Triamcinolone Acet 0.1% Oint 15 Gm Tube TOPICAL 1 applic Q12HR LEV Administration Radiology Results: ITS Impressions Chest X-Ray 04/26/21 10:58 IMPRESSION: 1. No acute cardiopulmonary abnormality. Quality VTE Prophylaxis VTE prophylaxis: mechanical ord
[2021-04-28 14:00] VITALS: BP 149/84; PULSE 62; RESP 18; TEMP 36.7; O2SAT 99
--- NOTE | 2021-04-28 16:38 | PM.DS ---
DS: Admitting Diagnosis Discharge Date 04/28/21 Admitting Diagnosis (1) Angioedema: Code(s): T78.3XXA - Angioneurotic edema, initial encounter Status: Acute (2) Urticarial rash: Code(s): L50.9 - Urticaria, unspecified Status: Acute DS: Discharge Diagnosis Discharge Diagnosis (1) Urticarial rash: Code(s): L50.9 - Urticaria, unspecified Status: Acute (2) Angioedema: Code(s): T78.3XXA - Angioneurotic edema, initial encounter Status: Acute (3) Essential (primary) hypertension: Code(s): I10 - Essential (primary) hypertension Status: Acute DS: Summary Hospital Course Reason for hospitalization: lip swelling Hospital Course: 65-year-old female presents emergency room for evaluation in [place] in diffuse upper body to cardio rash. Etiology was never clearly identified however she is advised to avoid minocycline, Topamax, aspirin. Patient had gone to a dinner constitution party prior to onset of her symptoms and feels very confident that it was likely 1 of the food she consumed. She has decided that she will continue taking these medications slowly reintroducing them 1 by 1. Patient has been provided a script for 2 of the pens. She is advised to follow-up with primary care physician and allergy testing. She is discharged home in stable condition indications of follow-up with her primary care physician within 1 week. Additionally, she is advised to return to the emergency room initiated any further can lip swelling or shortness for breath. Status at Discharge Functional status at discharge: independent ambulation Overall status at discharge: patient is back to baseline Time Spent with Patient Time attestation: Total time spent providing and/or coordinating discharge services: Time spent: Greater than 30 minutes Exam Narrative: General: Well-developed female sitting up in bed no distress. HEENT: EOMI. Sclerae anicteric. sclera clear no periorbital swelling noted. moist oral mucosa no edema noted Neck: Supple. No lymphadenopathy. No stridor. Respiratory: Lungs are clear to auscultation bilaterally. No wheezing. Cardiovascular: Regular rate and rhythm with S1-S2. Skin: Warm and dry. no uticaria, no edema, no erythema, no blistering or other signs of rash noted Extremities: No cyanosis, clubbing, or edema. Radial and pedal pulses intact. Neurological: Alert. Cranial nerves 2-12 are grossly intact. No gross focal deficits to casual conversation. Psychiatric: Pleasant and cooperative with normal mood and affect. Judgment and insight intact. Discharge Plan Discharge Attending physician on discharge: Ashli Hannah Consulting providers: Darline Martini Discharging Clinician: Ashli Hannah Anticipated Discharge Date/Time: 04/28/21 16:20 Patient Disposition: Home, Self-Care Activity: as tolerated Diet: regular Discharge Instructions: follow up w PCP may benefit from allergy testing, call 911 and return to nearest ER if lip/ tongue swelling or shortness of breath develop Patient Instructions: Anaphylaxis (DC) Stand Alone Forms: General Discharge Information Follow-up/Referrals: Esau Duque DO [Primary Care Provider] - Discharge Medications: New triamcinolone acetonide 0.1 % Ointment 1 applic topical Q12HR PRN (Reason: Rash) 10 Days Qty: 30 RF: 0 prednisone 10 mg tablet 10 mg PO .ASDIR Qty: 7 RF: 0 diphenhydramine HCl [Benadryl] 25 mg capsule 25 mg PO Q6H PRN (Reason: allery ) Qty: 30 RF: 0 Continued minocycline 50 mg tablet 50 mg PO PRN PRN (Reason: foliculitis) Qty: 30 RF: 2 ascorbic acid (vitamin C) 100 mg tablet,chewable 100 mg PO DAILY RF: 0 glucosamine-chondroitin [Osteo Bi-Flex] 250-200 mg tablet 1 tablet PO ONCE RF: 0 Azo Cranberry 250 mg tablet,chewable 250 mg PO BID RF: 0 biotin 5,000 mcg tablet,disintegrating 5,000 mcg PO DAILY RF: 0 aspirin [Adult Aspirin Regimen] 81 mg tablet,gildardo
== END 2021-04-28 17:00 | disposition home or self-care (01) | DRG 916 ==
LOC: ANHED 09:01 → ANHIMU 11:14 → ANH3MEDSUR 04-28 08:49 → ANHIMU 04-29 14:12
PROVIDERS: Physician Assistant; Admitting Provider Internal Medicine; Emergency Provider Emergency Medicine; PCP Internal Medicine; Visit Provider Hospitalist
DX: T78.3XXA Angioneurotic edema, initial encounter (principal); T78.1XXA Other adverse food reactions, not elsewhere classified, initial encounter; I10 Essential (primary) hypertension; M19.90 Unspecified osteoarthritis, unspecified site; K44.9 Diaphragmatic hernia without obstruction or gangrene; K58.9 Irritable bowel syndrome, unspecified; K21.9 Gastro-esophageal reflux disease without esophagitis; Z86.11 Personal history of tuberculosis; Z90.49 Acquired absence of other specified parts of digestive tract; Z98.84 Bariatric surgery status; Z87.891 Personal history of nicotine dependence
CPT/HCPCS: 36415; 71046; 80053; 85025; 85652; 86038; 86039; 86140; 93005; 96361; 96372; 96374; 96375; 96376; 99283; 99285; A9270; G0378; J0171; J1170; J1200; J2930; J7030

== ENCOUNTER 2021-05-11 10:02 | Outpatient (CLI) | payer MEDICARE, BC, SELFPAY ==
--- NOTE | ~2021-05-11 | MM_ITS ---
EXAMINATION: MM screening [facility] BI w frandy HISTORY: Screening mammogram TECHNIQUE: Craniocaudal and mediolateral oblique 3-D tomosynthesis images were obtained and synthetic 2-D images were generated. CAD analysis was submitted and interpreted. COMPARISON: 05/09/2019, 02/06/2018 BREAST PARENCHYMAL COMPOSITION: There are scattered areas of fibroglandular density. FINDINGS: There is no evidence of suspicious mass, calcification, or architectural distortion to sugg est malignancy in either breast. There has been no suspicious interval change. IMPRESSION: 1. No mammographic evidence of malignancy. 2. Recommend routine screening mammography in one year. BI-RADS Category 1: Negative Reviewed, dictated and finalized at location A. INSULATOR RUBBER
== END 2021-05-11 10:03 | disposition home or self-care (01) ==
LOC: ANHIMG 10:04
PROVIDERS: PCP Internal Medicine; Visit Provider Obstetrics & Gynecology
DX: Z12.31 Encounter for screening mammogram for malignant neoplasm of breast (principal)
CPT/HCPCS: 77063; 77067

== ENCOUNTER 2021-05-12 08:59 | Outpatient (CLI) | payer MEDICARE, BC, SELFPAY ==
--- NOTE | ~2021-05-12 | US_ITS ---
EXAMINATION: US abdomen complete EXAM DATE: 05/12/2021 09:41 INDICATION: Fatty liver, cholecystectomy, abdominal pain. TECHNIQUE: Multiple grayscale and Doppler images of the complete abdomen were obtained (by a technolo gist who performed the scan) and subsequently reviewed. Comparison is made to prior examination from 08/13/2019. FINDINGS: The abdominal aorta is normal in caliber. Visualized portion IVC is patent. The pancreatic head a nd body are normal in appearance. The pancreatic tail is not visualized. The liver has normal echogenicity and contour. Anechoic right liver lobe lesion consistent with cyst measuring 1 cm. There is no evidence of intrahepatic biliary duct dilation. Portal venous flow was seen in the hepatopedal, normal direction and has normal Doppler waveform. Common bile duct measures 4 mm, which is normal. The gallbladder fossa is unremarkable. Right kidney: There is normal contour and echogenicity. It measures 10.4 x 4.5 x 4.9 centimeters. T here is 9 mm cyst. There is no hydronephrosis. Left kidney: There is normal contour and echogenicity. It measures 11.3 x 5.2 x 5.6 centimeters. T here are no focal renal lesions identified. There is no hydronephrosis. The spleen measures 9.8 centimeters and is morphologically normal. IMPRESSION: 1. Unremarkable complete abdominal ultrasound exam. Reviewed, dictated and finalized at location B. NSED CLUB MANAGER
== END 2021-05-12 09:00 | disposition home or self-care (01) ==
LOC: ANHIMG 09:01
PROVIDERS: PCP Internal Medicine
DX: R10.9 Unspecified abdominal pain (principal); K76.0 Fatty (change of) liver, not elsewhere classified
CPT/HCPCS: 76700

== ENCOUNTER 2022-08-11 07:15 | Outpatient (CLI) | payer MEDICARE, SELFPAY ==
[2022-08-11 08:02] LABS: Hematocrit 40.2 % (37.0-47.0); Hemoglobin 13.2 g/dL (12.0-15.0); Mean Corpuscular HGB Conc 32.8 g/dl (32-36); Mean Corpuscular Hemoglobin 29.9 pg (26-34); Mean Corpuscular Volume 91.2 fl (80-100); Mean Platelet Volume 10.6 fl (7.4-10.4); Platelet Count Result 240 k/mm3 (150-375); Red Blood Count 4.41 M/mm3 (4.2-5.4); Red Cell Distribution Width 12.7 % (11.5-14.5); White Blood Count 5.8 K/mm3 (4.5-10.0)
[2022-08-11 08:13] LABS: Alanine Aminotransferase 28 U/L (6-35); Albumin Level 4.4 g/dL (3.5-5.1); Alkaline Phosphatase 97 U/L (38-126); Anion Gap 6 mmol/L (8-16); Aspartate Amino Transferase 29 U/L (14-36); Bilirubin,Total 0.6 mg/dL (0.2-1.3); Blood Urea Nitrogen 13 mg/dL (7-17); Calcium 8.9 mg/dL (8.4-10.2); Carbon Dioxide 30 mmol/L (22-30); Chloride 104 mmol/L (98-107); Cholesterol 191 mg/dL (0-200); Estimated Glomerular Filt Rate > 60; Glucose 99 mg/dL (65-110); HDL Direct 44 mg/dL; Potassium 3.6 mmol/L (3.4-5.0); Sodium 140 mmol/L (137-145); Triglycerides 144 mg/dL (<150)
[2022-08-11 08:24] LABS: LDL Cholesterol Direct 81 mg/dL
[2022-08-11 09:31] LABS: Hemoglobin A1C 5.7 % (<5.7)
[2022-08-15 15:44] LABS: Vitamin D 1,25 (OH)2 Total 36 pg/mL (18-72); Vitamin D2 1,25 (OH)2 <8 pg/mL; Vitamin D3 1,25 (OH)2 36 pg/mL
== END 2022-08-11 07:16 | disposition home or self-care (01) ==
LOC: ANHLAB 07:17
PROVIDERS: PCP Internal Medicine; Visit Provider Internal Medicine
DX: R73.9 Hyperglycemia, unspecified (principal); E55.9 Vitamin D deficiency, unspecified; E78.2 Mixed hyperlipidemia
CPT/HCPCS: 36415; 80053; 80061; 82652; 83036; 84443; 85027

== ENCOUNTER 2022-08-31 08:56 | Outpatient (CLI) | payer MEDICARE, SELFPAY ==
--- NOTE | ~2022-08-31 | MM_ITS ---
EXAMINATION: MM screening [facility] BI w frandy HISTORY: Screening mammogram TECHNIQUE: Craniocaudal and mediolateral oblique 3-D tomosynthesis images were obtained and synthetic 2-D images were generated. CAD analysis was submitted and interpreted. COMPARISON: 05/11/2021, 05/09/2019, 02/06/2018 BREAST PARENCHYMAL COMPOSITION: There are scattered areas of fibroglandular density. FINDINGS: No suspicious mass, calcification, or architectural distortion are identified in either priti ast to suggest malignancy. There has been no suspicious interval change. IMPRESSION: 1. No mammographic evidence of malignancy. 2. Recommend routine screening mammography in one year. BI-RADS Category 1: Negative Reviewed, dictated and finalized at location A. MACY TECHNICIAN INSTRUCTOR
== END 2022-08-31 08:57 | disposition home or self-care (01) ==
LOC: ANHIMG 09:03
PROVIDERS: PCP Internal Medicine; Visit Provider Obstetrics & Gynecology
DX: Z12.31 Encounter for screening mammogram for malignant neoplasm of breast (principal)
CPT/HCPCS: 77063; 77067

== ENCOUNTER 2022-11-02 08:44 | Outpatient (CLI) | payer MEDICARE, SELFPAY ==
--- NOTE | ~2022-11-02 | DEXA_ITS ---
Bone Density Report Name: ADRIENNE CAPPS Age: 66 Sex: Female Ethnicity: White Date of : 1955 Indication: postmenopausal; screening for osteoporosis; prior fracture; Referring Provider: GERARDO MG Study: Bone densitometry was performed. Exam Date: November 02, 2022 Accession number: [id number] Bone Density: Region BMD T-score Z-score Classification AP Spine(L1, L2, L4) 0.993 -0.4 1.6 Normal Femoral Neck (Left) 0.796 -0.5 1.3 Normal Total Hip (Left) 0.956 0.1 1.6 Normal Femoral Neck (Right) 0.771 -0.7 1.0 Normal Total Hip (Right) 0.955 0.1 1.5 Normal Total Hip Mean 0.955 0.1 1.6 Normal World Health Organization criteria for BMD impression classify patients as: Normal (T-score at or above -1.0), Osteopenia (T-score between -1.0 and -2.5), or Osteoporosis (T-score at or below -2.5). 10-year Fracture Risk: FRAX not reported because: All T-scores for Spine Total, Hip Total, Femoral Neck at or above -1.0 Previous Exams: Region Exam Age BMD T-score BMD Change BMD Change Date g/cm2 vs Baseline vs Previous Total Hip(Left) 11/02/2022 66 0.956 0.1 -0.109 (-10.3% -0.109 (-10.3% 08/01/2018 62 1.065 1.0 Total Hip(Right) 11/02/2022 66 0.955 0.1 -0.037 (-3.7%) -0.037 (-3.7%) 08/01/2018 62 0.992 0.4 *Denotes significance at 95% confidence level, LSC for Total Hip = 0.027 g/cm2 Clinical Information Provided by Patient: Has had a low trauma fracture Has used the following medications: Vitamin D, Calcium Patient maximum height was 64 Menopause Age: 47 No regular weight bearing exercise Drinks caffeinated beverages Onset of menses at age 8 Number of children 1 Impression: The patient has normal bone mass. The patient has risk factors, including: previous fracture. The BMD for the Total Hip(Left) decreased, changing by -10.3% since the last DXA exam. The BMD for the Total Hip(Right) decreased, changing by -3.7% since the last DXA exam. Discussion: BONE DENSITY IS ABOVE THE MINIMUM DESIRABLE LEVEL AT ALL SKELETAL SITES TESTED. This patient?s bone mineral density is above the minimum desirable level (T-score -1.0 or better) at all sites measured. The patient should follow a healthful lifestyle (good nutrition with adequate calcium and vitamin D, and appropriate weight-bearing exercise). Follow-Up: Consider repeating this study in 3 to 4 years to reassess this patient's status, or sooner if there is some new clinical indication. Reported by: [facility] on 11/02
== END 2022-11-02 08:45 | disposition home or self-care (01) ==
LOC: ANHIMG 08:45
PROVIDERS: PCP Family Medicine; Visit Provider Family Medicine
DX: Z78.0 Asymptomatic menopausal state (principal)
CPT/HCPCS: 77080

== ENCOUNTER 2023-03-03 08:46 | Outpatient (CLI) | payer MEDICARE, SELFPAY ==
[2023-03-03 10:11] LABS: Appearance Urine Turbid (Clear); Bacteria Urine None Seen /hpf; Bilirubin Urine Negative (Negative); Blood Urine Negative (Negative); Color Urine Yellow (Yellow); Glucose Urine UA Negative (Negative); Ketones Urine Negative (Negative); Leukocyte Esterase Ur Negative LEU/UL (NEGATIVE); Nitrate Urine Negative (Negative); Non Pathogenic Casts 0-2; Protein Urine Negative (Negative); RBC Urine 0-2 /hpf (0-2); Specific Grav Ur 1.017 (1.001-1.035); Squamous Epithelial Cell Urine None seen /hpf (Few); Urobilinogen Urine 0.2 mg/dL (<2.0); WBC Urine 0-5 /hpf (0-3)
[2023-03-03 10:32] LABS: Add Urine Microscopic? YES
== END 2023-03-03 08:47 | disposition home or self-care (01) ==
PROVIDERS: PCP Family Medicine; Visit Provider Family Medicine
DX: N39.0 Urinary tract infection, site not specified (principal); N30.90 Cystitis, unspecified without hematuria
CPT/HCPCS: 81001; 87086

== ENCOUNTER 2023-04-26 08:33 | Outpatient (CLI) | payer MEDICARE, SELFPAY ==
[2023-04-26 09:16] LABS: Hemoglobin 13.4 g/dL (12.0-15.0); Mean Corpuscular HGB Conc 31.9 g/dl (32-36); Mean Corpuscular Hemoglobin 30.2 pg (26-34); Mean Corpuscular Volume 94.6 fl (80-100); Mean Platelet Volume 10.5 fl (7.4-10.4); Platelet Count Result 233 k/mm3 (150-375); Red Blood Count 4.44 M/mm3 (4.2-5.4); Red Cell Distribution Width 13.2 % (11.5-14.5)
[2023-04-26 09:28] LABS: Hemoglobin A1C 5.3 % (<5.7)
[2023-04-26 09:44] LABS: Alanine Aminotransferase 19 U/L (6-35); Albumin Level 4.4 g/dL (3.5-5.1); Alkaline Phosphatase 93 U/L (38-126); Anion Gap 7 mmol/L (8-16); Aspartate Amino Transferase 24 U/L (14-36); Bilirubin,Total 0.7 mg/dL (0.2-1.3); Blood Urea Nitrogen 15 mg/dL (7-17); Calcium 10.1 mg/dL (8.4-10.2); Carbon Dioxide 29 mmol/L (22-30); Chloride 103 mmol/L (98-107); Estimated Glomerular Filt Rate > 60; Glucose 96 mg/dL (65-110); Potassium 4.1 mmol/L (3.4-5.0); Sodium 139 mmol/L (137-145)
[2023-04-26 09:53] LABS: Vitamin D 25 Hydroxy 55.6 ng/mL
== END 2023-04-26 08:34 | disposition home or self-care (01) ==
PROVIDERS: PCP Family Medicine; Visit Provider Family Medicine
DX: R73.03 Prediabetes (principal); I10 Essential (primary) hypertension; E55.9 Vitamin D deficiency, unspecified; E66.01 Morbid (severe) obesity due to excess calories
CPT/HCPCS: 36415; 80053; 82306; 83036; 85027

== ENCOUNTER 2023-09-22 15:31 | Outpatient (CLI) | payer MEDICARE, SELFPAY ==
--- NOTE | ~2023-09-22 | MM_ITS ---
EXAMINATION: MM screening [facility] BI w frandy HISTORY: Screening mammogram TECHNIQUE: Craniocaudal and mediolateral oblique 3-D tomosynthesis images were obtained and synthetic 2-D images were generated. CAD analysis was submitted and interpreted. COMPARISON: 08/31/2022, 05/11/2021, 05/09/2019 bilateral screening mammogram examinations BREAST PARENCHYMAL COMPOSITION: There are scattered areas of fibroglandular density. FINDINGS: Bilateral intramammary lymph nodes, more numerous larger left. There is no evidence of susp icious mass, calcification, or architectural distortion to suggest malignancy in either breast. There has been no suspicious interval change. IMPRESSION: 1. No mammographic evidence of malignancy. 2. Recommend routine screening mammography in one year. BI-RADS Category 2: Benign finding(s). Reviewed, dictated and finalized at location A.
== END 2023-09-22 15:32 | disposition home or self-care (01) ==
LOC: ANHIMG 15:37
PROVIDERS: PCP Family Medicine; Visit Provider Obstetrics & Gynecology
DX: Z12.31 Encounter for screening mammogram for malignant neoplasm of breast (principal)
CPT/HCPCS: 77063; 77067

== ENCOUNTER 2024-03-28 11:36 | Emergency (ER) | payer MEDICARE, SELFPAY ==
[2024-03-28] VITALS (8 sets, daily range): BP systolic 130–147; BP diastolic 80–94; PULSE 71–92; RESP 16–20; TEMP 36.7; O2SAT 96–100
--- NOTE | ~2024-03-28 | CT_ITS ---
CT abdomen pelvis w con Ordering provider: Jacquelin Butts MD History: 68 years Female with . abdominal pain, diarrhea, vomiting . Comparison: January 29, 2020 Technique: CT abdomen and pelvis with IV and without oral contrast. Automated exposure control and it erative reconstruction technique were employed. The dose-length product was 1553.46 mGy-cm. 100 mL Om nipaque 350 was given IV. Findings: VISUALIZED LOWER CHEST: Normal. UPPER ABDOMINAL ORGANS: Liver: Cyst in the right lobe segment #6 measuring 1.5 cm. Gallbladder: Status post cholecystectomy. Spleen: Normal. Stomach/duodenum: Gastric banding is noted Pancreas: Normal. Adrenals: Normal. Kidneys: Tiny cysts in the right kidney lower pole. PELVIC ORGANS: The bladder is normal. BOWEL AND MESENTERY: Colon: Mild sigmoid diverticulosis without diverticulitis. The appendix is not demonstrated most like ly surgically removed. Small Bowel: Slightly thickened wall of the bowel loops in the terminal ileum area is noted. Surround ing fat stranding is seen. No obstruction. Peritoneum/mesentery: No free air or free fluid. No mesenteric lymphadenopathy. RETROPERITONEUM: Mild atheromatous disease of the abdominal aorta. No retroperitoneal lymphadenopat hy. MUSCULOSKELETAL: Superficial soft tissues: The superficial soft tissues are normal. Bones: Age appropriate degenerative changes of the spine. IMPRESSION: 1. No evidence of appendicitis, diverticulitis or intestinal obstruction. 2. Thickened bowel loops in the distal ileum area with surrounding fat stranding which may indicate ileitis. Crohn's disease should be considered. Clinical correlation and follow-up advised. Reviewed, dictated and finalized at location A. IMPRESSION: 1. No evidence of appendicitis, diverticulitis or intestinal obstruction. 2. Thickened bowel loops in the distal ileum area with surrounding fat strandi ng which may indicate ileitis. Crohn's disease should be considered. Clinical c orrelation and follow-up advised.
[2024-03-28 12:35] LABS: Basophils Absolute Auto 0.1 K/mm3 (0.0-0.1); Basophils Percent Auto 0.5 % (0.2-1.2); Eosinophils Absolute Auto 0.1 K/mm3 (0-0.3); Eosinophils Percent Auto 1.3 % (0-4.4); Hematocrit 41.8 % (37.0-47.0); Immature Granulocyte Absolute 0.04 K/mm3 (0.00-0.031); Immature Granulocyte Percent A 0.4 % (0-0.5); Lymphocytes Absolute Auto 0.49 K/mm3 (0.9-3.2); Mean Corpuscular HGB Conc 33.5 g/dl (32-36); Mean Corpuscular Volume 92.7 fl (80-100); Mean Platelet Volume 10.6 fl (7.4-10.4); Monocytes Absolute Auto 0.4 K/mm3 (0.1-0.6); Monocytes Percent Auto 3.9 % (2.6-8.5); Neutrophils Absolute Auto 8.7 K/mm3 (1.3-6.7); Neutrophils Percent Auto 88.9 % (45.5-73.1); Platelet Count Result 197 k/mm3 (150-375); Red Blood Count 4.51 M/mm3 (4.2-5.4); Red Cell Distribution Width 13.2 % (11.5-14.5); White Blood Count 9.8 K/mm3 (4.5-10.0)
[2024-03-28 12:50] LABS: Alanine Aminotransferase 33 U/L (6-35); Albumin Level 4.2 g/dL (3.5-5.1); Alkaline Phosphatase 105 U/L (38-126); Anion Gap 8 mmol/L (4-12); Aspartate Amino Transferase 31 U/L (14-36); Bilirubin,Total 0.9 mg/dL (0.2-1.3); Blood Urea Nitrogen 15 mg/dL (7-17); Calcium 9.2 mg/dL (8.4-10.2); Carbon Dioxide 27 mmol/L (22-30); Chloride 102 mmol/L (98-107); Estimated CRCL calculation 67 ml/min; Estimated Glomerular Filt Rate > 60; Glucose 118 mg/dL (65-110); Lipase 50 U/L (23-300); Potassium 4.1 mmol/L (3.4-5.0); Sodium 137 mmol/L (137-145)
[2024-03-28 12:55] LABS: Add Urine Microscopic? NO; Appearance Urine Clear (Clear); Bilirubin Urine Negative (Negative); Blood Urine Negative (Negative); Color Urine Yellow (Yellow); Glucose Urine UA Negative (Negative); Ketones Urine Negative (Negative); Leukocyte Esterase Ur Negative LEU/UL (Negative); Nitrate Urine Negative (Negative); Protein Urine Negative (Negative); Urobilinogen Urine 0.2 mg/dL (<2.0)
--- NOTE | 2024-03-28 13:23 | ED.ABDPAIN ---
HPI - Abdominal Pain General Chief Complaint: Abdominal Pain Stated Complaint: abd pain Time Seen by Provider: 03/28/24 12:04 History of Present Illness HPI narrative: 68-year-old female with a history of hypertension presenting with abdominal pain. States that she woke in the middle of the night with severe cramping and had diarrhea. She was nauseated but did not vomit. States that she had similar episode several days ago. No chest pain or shortness of breath. No fevers. No dysuria or hematuria. Related Data Home Medications Medication Instructions Recorded Confirmed cholecalciferol (vitamin D3) 50 2,000 unit PO DAILY 08/13/19 08/09/22 mcg (2,000 unit) capsule (Vitamin D3) peppermint oil 90 mg 90 mg PO DAILY 08/13/19 08/09/22 capsule,delayed,extended release (IBgard) cranberry fruit concentrate 250 mg 250 mg PO BID 12/16/19 08/09/22 chewable tablet (Azo Cranberry) glucosamine-chondroitin 250 mg-200 1 tablet PO ONCE 12/22/20 08/09/22 mg tablet (Osteo Bi-Flex) ascorbic acid (vitamin C) 100 mg 500 mg PO DAILY 08/09/22 08/09/22 chewable tablet coenzyme Q10 100 mg capsule 100 mg PO DAILY 08/09/22 08/09/22 (CoQ-10) mecobalamin (vitamin B12) 1,000 1,000 mcg PO DAILY 08/09/22 08/09/22 mcg chewable tablet (B12 Active) lisinopril 5 mg tablet 5 mg PO DAILY 11/01/23 Allergies Allergy/AdvReac Type Severity Reaction Status Date / Time terbinafine Allergy Mild Hives Verified 03/28/24 12:08 flonase Allergy Mild Blister Uncoded 03/28/24 12:08 Review of Systems Review of Systems: All systems reviewed & are unremarkable except as noted in HPI and below PMFSH Past Medical History Medical History Arthritis Essential (primary) hypertension No longer on medication. Gastroesophageal reflux disease Hiatal hernia History of colon polyps History of rectal polyps Irritable bowel Obstructive sleep apnea on CPAP Tuberculosis At age 1, completed treatment. Surgical History Surgical History History of appendectomy History of bunionectomy of both great toes History of carpal tunnel surgery History of colonoscopy with polypectomy History of hammertoe correction History of incisional hernia repair (02/28/20) With 8.6 perietex underlay mesh. History of laparoscopic adjustable gastric banding (2008) History of laparoscopic cholecystectomy (07/2019) History of open reduction and internal fixation (ORIF) procedure Right ankle. History of repair of right rotator cuff Family History Family History Mother Family history of multiple sclerosis Family history of diabetes mellitus in first degree relative Acute myocardial infarction, Onset Age: 79 Diabetes mellitus Family history of cardiovascular disease Heart attack Multiple sclerosis Father Acute myocardial infarction Heart attack Sibling Diabetes mellitus Other Tuberculosis Social History Social History Social History: Surrogate decision maker: Edilberto Prather, spouse. Code status: Full code. Smoking packs per day: 0.5 Smoking cigarettes per day: 10.0 Years smoked: 20 Smoking pack-years: 10.00 Smoking status: Former smoker Tobacco type: cigarettes Second hand tobacco smoke exposure: No Smoking end date: 06/26/04 Alcohol intake: current Alcohol use details: socially Substance use: never Substance use type: does not use Lack of Transportation: No Lack of Food: Never True Current Housing: I Have Housing Concerned About Future Housing: No Difficulty Paying Gas/Electric Bills: No Difficulty Paying for Meds: No Currently Unemployed: No Education: High School Diploma/GED Difficulty w/ Childcare or Family Care: No Living arrangements: with family Additional living arra
[2024-03-28] MEDS: SODIUM CHLORIDE 0.9% IV 1,000 ML 999 ML IV CONT (14:00)
== END 2024-03-28 15:50 | disposition home or self-care (01) ==
PROVIDERS: Emergency Medicine; Emergency Provider Emergency Medicine; PCP Family Medicine
DX: K50.00 Crohn's disease of small intestine without complications (principal); I10 Essential (primary) hypertension; M19.90 Unspecified osteoarthritis, unspecified site; K21.9 Gastro-esophageal reflux disease without esophagitis; K44.9 Diaphragmatic hernia without obstruction or gangrene; G47.33 Obstructive sleep apnea (adult) (pediatric); Z86.0100 Personal history of colon polyps, unspecified; Z86.11 Personal history of tuberculosis; Z87.891 Personal history of nicotine dependence; Z90.49 Acquired absence of other specified parts of digestive tract
CPT/HCPCS: 36415; 74177; 80053; 81003; 83690; 85025; 96360; 99284; J7030; Q9967

== ENCOUNTER 2024-05-08 07:09 | Outpatient (CLI) | payer MEDICARE, SELFPAY ==
[2024-05-08 08:31] LABS: Hematocrit 40.7 % (37.0-47.0); Hemoglobin 13.3 g/dL (12.0-15.0); Mean Corpuscular HGB Conc 32.7 g/dl (32-36); Mean Corpuscular Hemoglobin 30.7 pg (26-34); Mean Platelet Volume 10.9 fl (7.4-10.4); Platelet Count Result 228 k/mm3 (150-375); Red Blood Count 4.33 M/mm3 (4.2-5.4); Red Cell Distribution Width 13.1 % (11.5-14.5); White Blood Count 5.6 K/mm3 (4.5-10.0)
[2024-05-08 08:37] LABS: Alanine Aminotransferase 25 U/L (6-35); Albumin Level 4.4 g/dL (3.5-5.1); Alkaline Phosphatase 110 U/L (38-126); Anion Gap 6 mmol/L (4-12); Aspartate Amino Transferase 30 U/L (14-36); Bilirubin,Total 0.6 mg/dL (0.2-1.3); Blood Urea Nitrogen 20 mg/dL (7-17); Carbon Dioxide 28 mmol/L (22-30); Chloride 104 mmol/L (98-107); Cholesterol 239 mg/dL (0-200); Estimated Glomerular Filt Rate > 60; Glucose 102 mg/dL (65-110); HDL Direct 58 mg/dL; Sodium 138 mmol/L (137-145); Triglycerides 215 mg/dL (<150)
[2024-05-08 08:48] LABS: LDL Cholesterol Direct 110 mg/dL
[2024-05-08 11:48] LABS: Vitamin D 25 Hydroxy 38.5 ng/mL
== END 2024-05-08 07:10 | disposition home or self-care (01) ==
PROVIDERS: PCP Family Medicine; Referring Provider Family Medicine; Visit Provider Nurse Practitioner Family
DX: E78.2 Mixed hyperlipidemia (principal); I10 Essential (primary) hypertension; R73.03 Prediabetes; R73.9 Hyperglycemia, unspecified; E55.9 Vitamin D deficiency, unspecified; G47.33 Obstructive sleep apnea (adult) (pediatric); R74.8 Abnormal levels of other serum enzymes; K50.90 Crohn's disease, unspecified, without complications; E66.01 Morbid (severe) obesity due to excess calories; Z68.37 Body mass index [BMI] 37.0-37.9, adult; Z99.89 Dependence on other enabling machines and devices
CPT/HCPCS: 36415; 80053; 80061; 82306; 82728; 83036; 85027

== ENCOUNTER 2024-05-20 00:09 | Day surgery (SDC) | payer MEDICARE, SELFPAY ==
[2024-05-03 14:41] VITALS: BMI 38.7
[2024-05-20 11:14] VITALS: BP 129/84; PULSE 83; RESP 18; TEMP 36.5; O2SAT 99
[2024-05-20] MEDS: LACTATED RINGERS 1,000 ML 150 ML IV CONT (11:31)
--- NOTE | 2024-05-20 12:17 | SUR.PREOP ---
Dr. Aceves running behind schedule. Pt notified of delay.
--- NOTE | 2024-05-20 12:43 | WPDANESEPPF ---
Anes - Initial Pre Proc Eval Procedure: Operation Date: 05/20/24 12:30 Proposed Procedures p Colonoscopy - Mike Aceves MD Date/Time: 05/20/24 12:43 Surgeon: Mike Aceves MD Pre Op Diagnosis: noninfective gastroenteritis/colitis Patient Data Age: 68 Gender: F Height: 1.63 m Weight: 103.5 kg Last Vital Signs Temp 97.7 F 05/20/24 11:14 Pulse 83 05/20/24 11:14 Resp 18 05/20/24 11:14 BP 129/84 05/20/24 11:14 Pulse Ox 99 05/20/24 11:14 O2 Del Method Room Air 05/20/24 11:14 Allergies Allergy/AdvReac Type Severity Reaction Status Date / Time terbinafine Allergy Mild Hives Verified 05/20/24 11:08 flonase Allergy Mild Blister Uncoded 05/08/24 07:32 Home Medications Medication Instructions Recorded Confirmed Type cholecalciferol (vitamin D3) 50 2,000 unit PO DAILY 08/13/19 05/20/24 History mcg (2,000 unit) capsule (Vitamin D3) peppermint oil 90 mg 90 mg PO DAILY 08/13/19 05/20/24 History capsule,delayed,extended release (IBgard) cranberry fruit concentrate 250 mg 250 mg PO BID 12/16/19 05/20/24 History chewable tablet (Azo Cranberry) glucosamine-chondroitin 250 mg-200 1 tablet PO ONCE 12/22/20 05/20/24 History mg tablet (Osteo Bi-Flex) coenzyme Q10 100 mg capsule 100 mg PO DAILY 08/09/22 05/20/24 History (CoQ-10) epinephrine 0.3 mg/0.3 mL 0.3 mg (0.3 mL) IM Q5-15M PRN 11/01/23 05/20/24 Rx injection, auto-injector anaphylaxis #2 ea lisinopril 5 mg tablet 5 mg PO DAILY 11/01/23 05/20/24 History hyoscyamine sulfate 0.375 mg See Rx Instructions .Route 11/23/23 05/20/24 Rx tablet,extended release,12 hr .COMPLEX #90 tabs minocycline 50 mg capsule See Rx Instructions .Route 02/01/24 05/20/24 Rx .COMPLEX #30 caps semaglutide (weight loss) 0.25 0.25 mg (0.5 mL) subcut WEEKLY #2 05/08/24 05/20/24 Rx mg/0.5 mL subcutaneous pen mL injector (Martinez) Patient hx anesthesia problems: none Family hx anesthesia problems: none Results Review: All pre-operative results and documents have been reviewed as part of the pre-operative evaluation. [facility] Past Medical History Medical History Arthritis Essential (primary) hypertension No longer on medication. Gastroesophageal reflux disease Hiatal hernia History of colon polyps History of rectal polyps Irritable bowel Obstructive sleep apnea on CPAP Tuberculosis At age 1, completed treatment. Surgical History Surgical History History of appendectomy History of bunionectomy of both great toes History of carpal tunnel surgery History of colonoscopy with polypectomy History of hammertoe correction History of incisional hernia repair (02/28/20) With 8.6 perietex underlay mesh. History of laparoscopic adjustable gastric banding (2008) History of laparoscopic cholecystectomy (07/2019) History of open reduction and internal fixation (ORIF) procedure Right ankle. History of repair of right rotator cuff Family History Family History Mother Family history of multiple sclerosis Family history of diabetes mellitus in first degree relative Acute myocardial infarction, Onset Age: 79 Diabetes mellitus Family history of cardiovascular disease Heart attack Multiple sclerosis Father Acute myocardial infarction Heart attack Sibling Diabetes mellitus Other Tuberculosis Social History Social History Social History: Surrogate decision maker: Edilberto Prather, spouse. Code status: Full code. Smoking packs per day: 0.5 Smoking cigarettes per day: 10.0 Years smoked: 20 Smoking pack-years: 10.00 Smoking status: Former smoker Tobacco type: cigarettes Second hand tobacco smoke exposure: No Smoking end date: 06/26/04 Alcohol intake: current Drinks per week: 2 Alcohol use details: socially Substance use: never Substance use type: does not use Lack of Transportation: No Lack of Food: Never True Current Housing: I Have Housing Concerned About Future Housing: No Difficulty Paying Gas/Electric Bills: No Difficulty Paying for Meds: No Currently Unemployed: No Education: High School Diploma/GED Difficulty w/ Childcare or Family Care: No Living arrangements: with family Additional living arrangements comments: Resides in [place] with her . Additional occupation/education comments: Retired. Spiritual care concerns: No Agree to blood products: Yes Anes - Eval Final PreProcedure Day of Procedure 05/20/24 12:43 Patient weight: morbidly obese Heart: regular rate and rhythm Lungs: clear to auscultation Airway: Mallampati scale class II Neurological: alert and oriented Last oral intake: >/= 8 hours ASA classification: III Emergent: no Anesthetic plan: proceed Anesthesia type and monitoring: general GIVS and standard monitoring Results Review: All pre-operative results and documents have been reviewed as part of the pre-operative evaluation. Informed Consent: The patient's anesthetic plan and its attendant risks and benefits were discussed with the patient/family/POA. Questions were solicited and answers provided to the satisfaction of the patient/family/POA.
--- NOTE | 2024-05-20 13:55 | PM.IMHP ---
H&P: HPI History of Present Illness Date/Time: 05/20/24 13:55 Chief Complaint: History of polyps Narrative: The patient has a history of colonic polyps, the last colonoscopy was 8 years ago Review of Systems Review of Systems: All systems reviewed & are unremarkable except as noted in HPI and below PMFSH Past Medical History Medical History (Updated 05/20/24 @ 13:57 by Mike Aceves MD) Arthritis Essential (primary) hypertension No longer on medication. Gastroesophageal reflux disease Hiatal hernia History of colon polyps History of rectal polyps Irritable bowel Obstructive sleep apnea on CPAP Tuberculosis At age 1, completed treatment. Surgical History Surgical History History of appendectomy History of bunionectomy of both great toes History of carpal tunnel surgery History of colonoscopy with polypectomy History of hammertoe correction History of incisional hernia repair (02/28/20) With 8.6 perietex underlay mesh. History of laparoscopic adjustable gastric banding (2008) History of laparoscopic cholecystectomy (07/2019) History of open reduction and internal fixation (ORIF) procedure Right ankle. History of repair of right rotator cuff Family History Family History Mother Family history of multiple sclerosis Family history of diabetes mellitus in first degree relative Acute myocardial infarction, Onset Age: 79 Diabetes mellitus Family history of cardiovascular disease Heart attack Multiple sclerosis Father Acute myocardial infarction Heart attack Sibling Diabetes mellitus Other Tuberculosis Social History Social History Social History: Surrogate decision maker: Edilbertowolfgang Prather, spouse. Code status: Full code. Smoking packs per day: 0.5 Smoking cigarettes per day: 10.0 Years smoked: 20 Smoking pack-years: 10.00 Smoking status: Former smoker Tobacco type: cigarettes Second hand tobacco smoke exposure: No Smoking end date: 06/26/04 Alcohol intake: current Drinks per week: 2 Alcohol use details: socially Substance use: never Substance use type: does not use Lack of Transportation: No Lack of Food: Never True Current Housing: I Have Housing Concerned About Future Housing: No Difficulty Paying Gas/Electric Bills: No Difficulty Paying for Meds: No Currently Unemployed: No Education: High School Diploma/GED Difficulty w/ Childcare or Family Care: No Living arrangements: with family Additional living arrangements comments: Resides in [place] with her . Additional occupation/education comments: Retired. Spiritual care concerns: No Agree to blood products: Yes Meds Home Medications and Allergies Home Medications Medication Instructions Recorded Confirmed Type cholecalciferol (vitamin D3) 50 2,000 unit PO DAILY 08/13/19 05/20/24 History mcg (2,000 unit) capsule (Vitamin D3) peppermint oil 90 mg 90 mg PO DAILY 08/13/19 05/20/24 History capsule,delayed,extended release (IBgard) cranberry fruit concentrate 250 mg 250 mg PO BID 12/16/19 05/20/24 History chewable tablet (Azo Cranberry) glucosamine-chondroitin 250 mg-200 1 tablet PO ONCE 12/22/20 05/20/24 History mg tablet (Osteo Bi-Flex) coenzyme Q10 100 mg capsule 100 mg PO DAILY 08/09/22 05/20/24 History (CoQ-10) epinephrine 0.3 mg/0.3 mL 0.3 mg (0.3 mL) IM Q5-15M PRN 11/01/23 05/20/24 Rx injection, auto-injector anaphylaxis #2 ea lisinopril 5 mg tablet 5 mg PO DAILY 11/01/23 05/20/24 History hyoscyamine sulfate 0.375 mg See Rx Instructions .Route 11/23/23 05/20/24 Rx tablet,extended release,12 hr .COMPLEX #90 tabs minocycline 50 mg capsule See Rx Instructions .Route 02/01/24 05/20/24 Rx .COMPLEX #30 caps semaglutide (weight loss) 0.25 0.25 mg (0.5 mL) subcut WEEKLY #2 05/08/24 05/20/24 Rx mg/0.5 mL subcutaneous pen mL injector (Wegovy) Allergies Allergy/AdvReac Type Severity Reaction Status Date / Time terbinafine Allergy Mild Hives Verified 05/20/24 11:08 flonase Allergy Mild Blister Uncoded 05/08/24 07:32 Vital Signs Vital Signs - 24 hr 05/20/24 11:14 Temperature 97.7 F Pulse Rate 83 Respiratory Rate 18 Blood Pressure 129/84 Pulse Oximetry 99 Oxygen Delivery Room Air Exam Const: General: cooperative and healthy appearing Resp: Effort & Inspection: normal respiratory effort and able to speak in complete sentences Auscultation: clear to auscultation bilaterally Cardio: Rate: regular rate Rhythm: regular rhythm GI: Inspection: normal to inspection GI Palp: No No hepatosplenomegaly present Auscultation: normal bowel sounds Rectal Exam: deferred Skin: General skin exam: normal color Psych: Appearance: grossly normal Mental Status: mental status grossly normal Assessment and Plan Assessment and plan (1) History of colon polyps: Code(s): Z86.010 - Personal history of colon polyps Status: Acute Assessment and Plan: The patient is deemed a good candidate for the procedure. Consent signed. Will proceed. Plan The patient is deemed a good candidate for the procedure. Consent signed. Will proceed.
[2024-05-20 14:17] VITALS: BP 101/63; PULSE 66; RESP 20; O2SAT 95
[2024-05-20 14:27] VITALS: BP 109/72; PULSE 63; RESP 15; O2SAT 96
[2024-05-20 14:37] VITALS: BP 119/79; PULSE 65; RESP 18; O2SAT 98
== END 2024-05-20 14:59 | disposition home or self-care (01) ==
PROVIDERS: PCP Family Medicine; Referring Provider Nurse Practitioner Family; Visit Provider Internal Medicine Gastroenterology
PROC: 0DJD8ZZ Inspection of Lower Intestinal Tract, Via Natural or Artificial Opening Endoscopic (ICD-10-PCS; CPT 45378; principal; 2024-05-20 12:30)
DX: Z12.11 Encounter for screening for malignant neoplasm of colon (principal); K57.30 Diverticulosis of large intestine without perforation or abscess without bleeding; I10 Essential (primary) hypertension; K21.9 Gastro-esophageal reflux disease without esophagitis; K58.9 Irritable bowel syndrome, unspecified; M19.90 Unspecified osteoarthritis, unspecified site; G47.33 Obstructive sleep apnea (adult) (pediatric); E66.01 Morbid (severe) obesity due to excess calories; Z68.39 Body mass index [BMI] 39.0-39.9, adult; Z99.89 Dependence on other enabling machines and devices; Z79.85 Long-term (current) use of injectable non-insulin antidiabetic drugs; Z98.890 Other specified postprocedural states; Z90.49 Acquired absence of other specified parts of digestive tract; Z87.891 Personal history of nicotine dependence; Z86.0100 Personal history of colon polyps, unspecified; Z86.11 Personal history of tuberculosis; Z82.49 Family history of ischemic heart disease and other diseases of the circulatory system
CPT/HCPCS: G0105; J2003; J2704; J7120

== ENCOUNTER 2024-10-21 15:26 | Outpatient (CLI) | payer MEDICARE, SELFPAY ==
--- NOTE | ~2024-10-21 | MM_ITS ---
EXAMINATION: MM screening [facility] BI w frandy HISTORY: Screening mammogram TECHNIQUE: Craniocaudal and mediolateral oblique 3-D tomosynthesis images were obtained and synthetic 2-D images were generated. CAD analysis was submitted and interpreted. COMPARISON: 09/22/2023, 09/12/2022, 05/11/2021 BREAST PARENCHYMAL COMPOSITION:Not Dense. There are scattered areas of fibroglandular density. FINDINGS: No suspicious mass, calcification, or architectural distortion are identified in either priti ast to suggest malignancy. There has been no suspicious interval change. IMPRESSION: No mammographic evidence of malignancy. Recommend routine screening mammography in one year. BI-RADS Category 1: Negative Reviewed, dictated and finalized at location .
--- OUTSIDE RECORDS SUMMARY | 2024-10-21 18:00 | XMS_ITS | Clinical Summary ---
Author Organization [facility] Address [address] [place] [address] Care Team Providers Care Manager File Name Role Phone Unavailable Primary Care Provider Unavailabl e Encounters Date Type Department Care Team Description 09/11/2024 External Device Data ST[facility] ABSTRACTION Provider, Abstract 08/31/2024 External Device Data [facility] ABSTRACTION Provider, Abstract 08/30/2024 External Device Data ST[facility] ABSTRACTION Provider, Abstract 08/28/2024 External Device Data ST[facility] ABSTRACTION Provider, Abstract 08/13/2024 External Device Data ST[facility] ABSTRACTION Provider, Abstract 07/23/2024 External Device Data STL ABSTRACTION Provider, Abstract from Last 3 Months Social History Tobacco Use Types Packs/Day Years Used Date Smoking Tobacco: Never Assessed Comments Unknown Sex and Gender Information Value Date Recorded Sex Assigned at Not on file Legal Sex Female 1:18 PM CDT Gender Identity Not on file Sexual Orientation Not on file Plan of Treatment Health Maintenance Due Date Last Done Comments DTAP/TDAP/TD VACCINES (1 - Tdap) 1972 BREAST CANCER SCREENING 1993 COLORECTAL SCREENING 1998 Colorectal Cancer Screening 1998 FIT-DNA Q 3 years 1998 FIT/FOBT Q 1 year 1998 Flex Sig/CT Colonography Q 5 years 1998 PNEUMOCOCCAL VACCINE 50+ YEARS (1 of 1 - PCV) 12/20/19 04 ZOSTER VACCINE (1 of 2) 12/20/2003 OSTEOPOROSIS SCREENING 2018 INFLUENZA VACCINE (#1) 2024 RSV VACCINE (60+ or ) (1 - 1-dose 75+ series) 2028 Insurance [facility] [id number] [place] [id number]
--- OUTSIDE RECORDS SUMMARY | 2024-10-21 18:00 | XMS_ITS | Clinical Summary ---
Author Organization [facility] Address [address] [place] [address] Care Team Providers Care Side Hemmer Name Role Phone Jet Palomares MD Primary Care Provider [phone] Allergies Active Allergy Reactions Criticality Noted Date Comments Fluticasone Rash Medium 06/28/2024 Terbinafine Hives Medium 09/29/2017 Medications ibuprofen (ADVIL,MOTRIN) 800 mg tablet Take 1 tablet (800 mg total) by mouth every 6 (six) hours as needed for pain Active hyoscyamine ER (LEVBID) 0.375 mg 12 hr tablet Take 1 tablet (375 mcg total) by mouth daily 02/25/2023 Active minocycline (DYNACIN) 50 mg tablet Take 1 tablet (50 mg total) by mouth daily as needed Active cholecalciferol (VITAMIN D-3) 2000 unit tablet Act anel ubidecarenone (coenzyme Q10) 100 mg tablet Take by mouth Active tcgtxltv-dtpt-st h3-A-[id number]-bosw 750 mg-644 mg- 30 mg-1 mg tablet Take by mouth Active calcium citrate 250 mg calcium tablet tablet Take by mouth Active lisinopriL (PRINIVIL,ZESTRI L) 10 mg tablet Take 1 tablet (10 mg total) by mouth daily 90 tablet 3 09/03/2024 Active Active Problems Problem Noted Date Diagnosed Date Primary hypertension 09/22/2023 Nonrheumatic mitral valve regurgitation 03/07/20 23 LVH (left ventricular hypertrophy) 03/07/2023 Mixed hyperlipidemia 03/07/2023 Chest pain 03/07/2023 Obesity (BMI 35.0-39.9 without comorbidity) 02/24 Mitral valve prolapse 09/29/2017 History of tobacco abuse 09/29/2017 KOVACS (dyspnea on exertion) 09/29/2017 LOLLY on CPAP 09/29/2017 Chronic fatigue 09/29/2017 Resolved Problems Problem Noted Date Diagnosed Date Resolved Date Dyslipidemia 09/29/2017 03/07/2023 Surgical History Surgery Date Site/Laterality Comments FOOT SURGERY SHOULDER SURGERY ANKLE SURGERY APPENDECTOMY Medical History Medical History Date Comments Heart valve problem Skin disorder Obese Mitral valve prolapse Family History Medical History Relation Name Comments Heart attack Father Heart failure Mother Diabetes Sister Relation Name Status Comments Father (Age 49) Mother (Age 78) Sister Alive Social History Tobacco Use Types Packs/Day Years Used Date Smoking Tobacco: Former Smokeless Tobacco: Never Alcohol Use Standard Drinks/Week Comments Yes 0 (1 standard drink = 0.6 oz pur e alcohol) socially Comments Unknown Sex and Gender Information Value Date Recorded Sex Assigned at Not on file Legal Sex Female 8:13 AM PLUGMAN Gender Identity Not on file Sexual Orientation Not on file Obstetrics History Last Filed Vital Signs Vital Sign Reading Time Taken Comments Blood Pressure 136/84 06/28/2024 7:53 AM PLUGMAN Pulse 76 06/28/2024 7:53 AM PLUGMAN Temperature - - Respiratory Rate 16 03/07/2023 12:42 PM CDT Oxygen Saturation 96% 06/28/2024 7:53 AM PLUGMAN Inhaled Oxygen Concentration - - Weight 107.5 kg (237 lb) 06/28/2024 7:53 AM PLUGMAN Height 162.6 cm (5' 4 ) 06/28/2024 7:53 AM PLUGMAN Body Mass Index 40.68 06/28/2024 7:53 AM PLUGMAN Plan of Treatment Health Maintenance Due Date Last Done Comments Breast Cancer Screening-Mammogram 1953 Colon Cancer Screening-Colonoscopy 1953 Depression Screening 1953 Fall Risk Assessment 1953 Hepatitis C Screening 1953 Osteoporosis Screening-Bone Density Scan 1953 Hepatitis B Screening 12/20/1971 Well Visit 65+ 2018 DTaP/Tdap/Td Vaccine (2 - Td or Tdap) 03/05/2021 03/05/2011 Pneumococcal vaccine 65+ (2 of 2 - PCV) 10/26/2023 10/25/2022 Covid-19 Vaccine (5 - 2023-2 5 season) 2024 03/08/2022, 03/31/2021, 08/19/2020, Additional history exists Influenza Vaccine (#1) 2024 Zoster Vaccine Completed 01/06/2023, 10/13/2022 Insurance [facility] MEDIC[facility] UHC MEDICARE ADVANTAGE [facility] MEDICARE ADVANTAGE [place] [id number] [facility] CHOICE PLUS Care Teams Side Hemmer Relationship Specialty Start Date End Date Jet Palomares MD PCP - General Family Practice 03/07/23
--- OUTSIDE RECORDS SUMMARY | 2024-10-21 18:00 | XMS_ITS | Clinical Summary ---
Author Organization [facility] Address [address] [place] [address] Care Team Providers Care Operator And Truck Driver Name Role Phone Esau Duque DO Primary Care Provider [phone] Source Comments [facility],non-owned Affiliates and Associated Physician Practices is amultiple site organization consisting of ambulatory clinics and hospital sitesin [place], [place], [place] and [place]. This disclosure is being madepursuant to the Care Everywhere program and may not contain all information available regarding this patient. Last updated 18.[facility] Allergies Active Allergy Reactions Criticality Noted Date Comments Terbinafine Urticaria Medium 04/23/2018 Medications * Be aware that medications may not be up to date on this document. Alwaysverify current medications with the patient. biotin 2.5 MG tablets Take 2.5 mg by mouth once daily Active Probiotic Product (PROBIOTIC ADVANCED PO) Active Family History Medical History Relation Name Comments CAD (Coronary Artery Disease) Father CAD (Coronary Artery Disease) Mother Multiple Sclerosis Mother CAD (Coronary Artery Disease) Paternal Grandfather Relation Name Status Comments Father Mother Paternal Grandfather Social History Tobacco Use Types Packs/Day Years Used Date Smoking Tobacco: Never Smokeless Tobacco: Never Alcohol Use Standard Drinks/Week Comments Yes 3 (1 standard drink = 0.6 oz pur e alcohol) Comments Unknown Sex and Gender Information Value Date Recorded Sex Assigned at Not on file Legal Sex Female 5:50 AM DISTRICT RESOURCE OFFICER Gender Identity Not on file Sexual Orientation Not on file Last Filed Vital Signs Vital Sign Reading Time Taken Comments Blood Pressure - - Pulse - - Temperature - - Respiratory Rate - - Oxygen Saturation - - Inhaled Oxygen Concentration - - Weight 104.3 kg (230 lb) 05/07/2018 6:28 AM DISTRICT RESOURCE OFFICER Height 162.6 cm (5' 4 ) 05/07/2018 6:28 AM DISTRICT RESOURCE OFFICER Body Mass Index 39.48 05/07/2018 6:28 AM DISTRICT RESOURCE OFFICER Plan of Treatment Health Maintenance Due Date Last Done Comments BONE DENSITY TESTING 1953 COLOGUARD (AGES 45-75) - COL ON CA SCREENING 1953 COLON MONITORING 1953 COLONOSCOPY - COLON CA SCREENING 1953 CT COLONOGRAPHY - COLON CA SCREENING 1953 Colorectal Cancer Screening 1953 FIT - COLON CA SCREENING 1953 FLEX SIG - COLON CA SCREENING 1953 LIPID TESTING 1953 MAMMOGRAM 1953 HEPATITIS C SCREENING 12/15/1971 DTAP/TDAP/TD VACCINES (1 - Tdap) 1972 PNEUMOCOCCAL VACCINE 50+ (1 of 1 - PCV) 12/20/2003 ZOSTER VACCINE (1 of 2) 12/20/2003 COVID-19 VACCINE ( - 2023-2 5 season) 2024 DEPRESSION SCREENING 06/26/2024 INFLUENZA VACCINE (Season Ended) 2025 Respiratory Syncytial Virus (RSV) Vaccine Pt: or over 60 yrs (1 - 1-dose 75+ series) 2028 HEPATITIS B VACCINE Aged Out No longe r eligible based on patient's age to complete this topic HIB VACCINE Aged Out No longer eligi ble based on patient's age to complete this topic HPV VACCINE Aged Out No longer eligi ble based on patient's age to complete this topic MENINGOCOCCAL (Group B) VACC INE SHARED DECISION-MAKING Aged Out No longer eligibl e based on patient's age to complete this topic MENINGOCOCCAL GROUPS A/C/Y/W VACCINE Aged Out No longer eligible b ased on patient's age to complete this topic Insurance [employer]M MEDICARE ANTHEM Care Teams Operator And Truck Driver Relationship Specialty Start Date End Date Esau Duque DO [address] [place] [address] PCP - General Internal Medicine 04/23/18
--- OUTSIDE RECORDS SUMMARY | 2024-10-21 18:00 | XMS_ITS | Referral Summary ---
Author Organization [facility] Address [address] [place] [address] Care Team Providers Care Grinding Operator Name Role Phone Jet Palomares MD Primary Care Provider [phone] Allergies Active Allergy Reactions Criticality Noted Date [...] 100 mg tablet Take by mouth Active pwoerfdl-esau-bn q4-M-uyus-bosw 750 mg-644 mg- 30 mg-1 mg tablet [...] Diagnosed Date Resolved Date Dyslipidemia 09/29/2017 03/07/2023 Social History Tobacco Use Types Packs/Day Years Used Date Smoking Tobacco: Former Smokeless Tobacco: Never Alcohol Use Standard Drinks/Week Comments Yes 0 (1 standard drink = 0.6 oz pur e alcohol) socially Comments Unknown Sex and Gender Information Value Date Recorded Sex Assigned at Not on file Legal Sex Female 8:13 AM COPIER OPERATOR Gender Identity Not on file Sexual Orientation Not on file Last Filed Vital Signs Vital Sign Reading Time Taken Comments Blood Pressure 136/84 06/28/2024 7:53 AM COPIER OPERATOR Pulse 76 06/28/2024 7:53 AM COPIER OPERATOR Temperature - - Respiratory Rate 16 03/07/2023 12:42 PM CDT Oxygen Saturation 96% 06/28/2024 7:53 AM COPIER OPERATOR Inhaled Oxygen Concentration - - Weight 107.5 kg (237 lb) 06/28/2024 7:53 AM COPIER OPERATOR Height 162.6 cm (5' 4 ) 06/28/2024 7:53 AM COPIER OPERATOR Body Mass Index 40.68 06/28/2024 7:53 AM COPIER OPERATOR Plan of Treatment Not on file Insurance [facility] MEDICARE [facility] MEDICARE ADVANTAGE [facility] MEDICARE ADVANTAGE [facility] CHOICE PLUS Care Teams Grinding Operator Relationship Specialty Start Date End Date Jet Palomares MD PCP - General Family Practice 03/07/23
== END 2024-10-21 15:27 | disposition home or self-care (01) ==
LOC: ANHIMG 16:01
PROVIDERS: PCP Family Medicine; Visit Provider Obstetrics & Gynecology
DX: Z12.31 Encounter for screening mammogram for malignant neoplasm of breast (principal)
CPT/HCPCS: 77063; 77067

== ENCOUNTER 2025-02-25 08:25 | Outpatient (CLI) | payer MEDICARE, SELFPAY ==
--- OUTSIDE RECORDS SUMMARY | 2009-10-14 09:15 | XMS_ITS | Continuity of Care Document ---
Author Organization [facility] Address [address] [place] [address] [place] [address] Phone Care Team Providers Care Sales Associate Name Role Phone Jonny Padgett Unavailable Unavailable Procedures Procedure Date Eye Exam & Treatment Office/outpatient Visit, [facility] Advance Directives Directive Yes / No Effective Date File Name No Information Encounters Encounter Description Practice Location Reason(s) For Visit Diagnoses Date Provider Providers Copied on Encounter [facility], [address] [place] [address] [address], [place], [place], [id number], tel:[phone] [facility] No Information 0 Christianoishnasamy Jonny. [address], [facility], [place]. tel:[phone] Office/outpat ient Visit, [facility], [address] [place] [address] [address], [place], [place], [id number], tel:[phone] [facility] No Information 0 Krishnasamy Jonny. [address] [address], [place], [place], [facility], [place]. tel:[phone] Family History Family Member Type Diagnosis Age At Onset No Information Payers Payer name Insurance type Covered constitution party ID Authoriza tion(s) [place] BL [id number] Social History Type Description Quantity Date Captured Comments Sex Female Smoking Status No Information Chief Complaint And Reason For Visit No Information Reason For Referral Reason For Referral No Information History Of Present Illness Encounter Date Complaint History Of Prese nt Illness No Information Functional Status Date Functional Assessmen t No Information Instructions Date Instruction Additional Infor mation No Information Assessments Type Assessment Date No Information Patient Care Teams Name Effective Dates (start - stop) Status Members No Information
--- OUTSIDE RECORDS SUMMARY | 2010-12-26 19:00 | XMS_ITS | Continuity of Care Document ---
Author Organization [facility] Address [address] [place] [address] Phone Care Team Providers Care County Treasurer Name Role Phone Conversion MD, Doctor Unavailable Unavailabl e Medications Medication Instructions Dosage Effective Dates (start - stop) Status Comments PHENTERMINE HCL 30MG CAPS 0 DIRECTE - Active 1 pill 30 minutes before lunch PHENTERMINE HCL 37.5MG TABS 1 QAM - No Longer Active Advance Directives Directive Yes / No Effective Date File Name No Information Encounters Encounter Description Practice Location Reason(s) For Visit Diagnoses Date Provider Providers Copied on Encounter [facility], [address], [place], [place], [id number] , tel: [phone] Conversion Department No Information 201 1 Conversion Doctor. [facility] [place], [address], . [facility], [address], [place], [place], [address] , tel: [phone] Klein ABNORMAL WEIGHT GAIN 7-200 4 Jorge Whiting. [address] [facility], [place], [place], [address]. tel: [phone] [facility], [address], [place], [place], [address] , [place] tel: [phone] Klein MALAISE AND FATIGUE NEC 3-200 4 Latoya Westbrook. [address] [facility], [place], [place], [address], [place]. tel: [phone] [facility], [address], [place], [place], [address] , tel:[phone] Klein MIXED HYPERLIPIDEMIAHIS TORY OF TOBACCO USE October-0 3-200 4 Patel Johanne. [address] [facility], [place], [place], [address]. tel:[phone] [facility], [address], [place], [place], [address] , tel:[phone] Klein HEMATURIA Aug- 1-200 3 Latoya Westbrook. [address] [facility], [place], [place], [address], [place]. tel:[phone] [facility], [address], [place], [place], [address] , [place] tel:[phone] Klein URIN TRACT INFECTION NOS Aug- 1-200 3 Conversion Doctor. [facility] [place], [address], [place]. [facility], [address] [facility], [place], [place], [address] , tel:[phone] Conversion Department OBESITY NOS Dec- 4-200 2 Conversion Doctor. [facility] [place], [address], [place]. [facility], [address] [facility], [place], [place], [address] , tel:[phone] Klein ACNE NEC Apr-0 5-200 2 Jorge Whiting. [address] [facility], [place], [place], [address]. tel:[phone] [facility], [address] [facility], [place], [place], [address] , [place] tel:[phone] Klein LONG-TERM USE MEDS NEC Apr-0 5-200 2 Latoya Westbrook. [address] [facility], [place], [place], [address], [place]. tel:[phone] [facility], [address], [place], [place], [address] , [place] tel:[phone] Klein CONTRACEPT SURVEILL NEC Dec-3 1-200 1 Latoya Westbrook. [address] [facility], [place], [place], [address], [place]. tel:[phone] [address] [facility], [place], [place], [address] , [place] tel: [phone] Klein SEBACEOUS CYST 200 1 Jorge Whiting. [address] [place], [place], [address]. tel:[phone] [facility], [address], [place], [place], [address] , tel: [phone] Klein HAIR DISEASES NEC 9 Jorge Whiting. [address] [place], [place], [address]. tel:[phone] [facility], [address], [place], [place], [address] , tel: [phone] Klein DERMATOPHYTOSIS OF FOOT 9 Jorge Whiting. [facility] [place], [place], [address]. tel:[phone] Family History Family Member Type Diagnosis Age At Onset No Information Payers Payer name Insurance type Covered green party ID Authoriza tilinda(s) No Information Social History Type Description Quantity Date Captured [...]
--- OUTSIDE RECORDS SUMMARY | 2025-02-25 08:32 | XMS_ITS | Clinical Summary ---
Author Organization [facility] Address [address] [place] [address] Care Team Providers Care Maintenance Groundskeeper Name Role Phone Esau Duque DO Primary Care Provider [phone] Source Comments [facility],non-owned Affiliates and Associated Physician Practices is amultiple site organization consisting of ambulatory clinics and hospital sitesin [place], [place], [place] and [place]. This disclosure is being madepursuant to the Care Everywhere program and may not contain all information available regarding this patient. Last updated 18.[facility] Allergies Active Allergy Reactions Criticality Noted Date [...] on file Legal Sex Female 5:50 AM ENGINEERING LIBRARIAN Gender Identity Not on file Sexual Orientation Not on file Last Filed Vital Signs Vital Sign Reading Time Taken Comments Blood Pressure - - Pulse - - Temperature - - Respiratory Rate - - Oxygen Saturation - - Inhaled Oxygen Concentration - - Weight 104.3 kg (230 lb) 05/07/2018 6:28 AM ENGINEERING LIBRARIAN Height 162.6 cm (5' 4) 05/07/2018 6:28 AM ENGINEERING LIBRARIAN Body Mass Index 39.48 05/07/2018 6:28 AM ENGINEERING LIBRARIAN Plan of Treatment Health Maintenance Due Date [...] VACCINE (1 of 2) 12/20/2003 COVID-19 VACCINE (1 - 2023-2 5 season) 2024 DEPRESSION SCREENING 06/26/2024 INFLUENZA VACCINE (#1) 2025 Respiratory Syncytial Virus (RSV) Vaccine Pt: [...] topic Insurance [employer]M MEDICARE ANTHEM Care Teams Maintenance Groundskeeper Relationship Specialty Start Date End Date Esau Duque DO [address] [place] [address] PCP - General Internal Medicine 04/23/18
--- OUTSIDE RECORDS SUMMARY | 2025-02-25 08:32 | XMS_ITS | Encounter Summary ---
Author Organization [facility] Address [address] [place] [id number] Care Team Providers Care Rn Occupational Health Name Role Phone Pankaj Arreola MD Primary Care Provider [phone] Pankaj Arreola MD Primary Care Provider [phone] Esau Duque DO Primary Care Provider [phone] Jet Palomares MD Primary Care Provider [phone] Encounter Details Date Type Department Care Team (Late st Contact Info) Description 08/10/2017 Orders Only [facility] Health Information Management [address] [place] [address] Scanning, Provider Social History Tobacco Use Types Packs/Day Years Used Date Smoking Tobacco: Never Assessed Comments Unknown Sex and Gender Information Value Date Recorded Sex Assigned at Not on file Legal 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 Gender Identity Not on file Sexual Orientation Not on file documented as of this encounter Plan of Treatment Not on file documented as of this encounter Procedures Procedure Name Priority Date/Time Associated Diagnosis Comments SCAN - LABS 08/10/2017 documented in this encounter Results * SCAN - LABS (08/10/2017) us Provider Scanning Final Result documented in this encounter Visit Diagnoses Not on filedocumented in this encounter Care Teams Rn Occupational Health Relationship Specialty Start Date End Date Pankaj Arreola MD PCP - General 10/25/16 10/10/17 Pankaj Arreola MD PCP - General Internal Medicine 10/11/17 12/03/18 Esau Duque DO PCP - General Internal Medicine 12/04/18 03/06/23 Jet Palomares MD PCP - General Family Practice 03/07/23 documented as of this encounter
--- OUTSIDE RECORDS SUMMARY | 2025-02-25 08:32 | XMS_ITS | Clinical Summary ---
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 Gender Identity Not on file Sexual Orientation Not on file Obstetrics History Last Filed Vital Signs Vital Sign Reading Time Taken Comments Blood Pressure 136/84 06/28/2024 7:53 AM DEVELOPMENTAL ELECTRONICS ASSEMBLER Pulse 76 06/28/2024 7:53 AM DEVELOPMENTAL ELECTRONICS ASSEMBLER Temperature - - Respiratory Rate 16 03/07/2023 12:42 PM CDT Oxygen Saturation 96% 06/28/2024 7:53 AM DEVELOPMENTAL ELECTRONICS ASSEMBLER Inhaled Oxygen Concentration - - Weight 107.5 kg (237 lb) 06/28/2024 7:53 AM DEVELOPMENTAL ELECTRONICS ASSEMBLER Height 162.6 cm (5' 4) 06/28/2024 7:53 AM DEVELOPMENTAL ELECTRONICS ASSEMBLER Body Mass Index 40.68 06/28/2024 7:53 AM DEVELOPMENTAL ELECTRONICS ASSEMBLER Plan of Treatment Health Maintenance Due Date Last Done Comments Breast Cancer Screening-Mammogram 1955 Colon Cancer Screening-Colonoscopy 1955 Depression Screening 1955 Fall Risk Assessment 1955 Hepatitis C Screening 1955 Osteoporosis Screening-Bone Density Scan 1955 Hepatitis B Screening 12/20/1971 Well Visit 65+ 2018 DTaP/Tdap/Td Vaccine (2 - Td or Tdap) 03/05/2021 03/05/2011 Pneumococcal vaccine 65+ (2 of 2 - PCV) 10/26/2023 10/25/2022 Covid-19 Vaccine (2023-2 5 season) 2024 03/08/2022, 03/31/2021, 08/19/2020, Additional history exists Influenza Vaccine (#1) 2025 Zoster Vaccine Completed 01/06/2023, 10/13/2022 Insurance [facility] MEDICARE UHC MEDICARE ADVANTAGE [facility] MEDIC[facility] Address: [facility] [address] [place] [address] [facility] MEDICARE ADVANTAGE [facility] MEDICARE Address[facility] [address] [place] [address] [facility] CHOICE PLUS [facility] HMO/PPO Address: [facility] [address] [place] [address] Care Teams Arborer Relationship Specialty Start Date End Date Jet Palomares MD PCP - General Family Practice 03/07/23
--- OUTSIDE RECORDS SUMMARY | 2025-02-25 08:32 | XMS_ITS | Clinical Summary ---
Author Organization [facility] Address [address] [place] [address] Care Team Providers [employer] Tanker Driver Name Role Phone Unavailable Primary Care Provider Unavailabl e Social History Tobacco Use Types Packs/Day Years [...] 12/20/2003 OSTEOPOROSIS SCREENING 2018 INFLUENZA VACCINE (#1) 2025 RSV VACCINE (60+ or ) (1 - 1-dose 75+ series) 2028 Insurance [facility] [id number]
[2025-02-25 08:54] LABS: Hematocrit 40.1 % (37.0-47.0); Hemoglobin 13.0 g/dL (12.0-15.0); Immature Granulocyte Percent A 0.2 % (0-0.5); Lymphocytes Absolute Auto 1.73 K/mm3 (0.9-3.2); Mean Corpuscular HGB Conc 32.4 g/dl (32-36); Mean Corpuscular Hemoglobin 30.2 pg (26-34); Mean Corpuscular Volume 93.0 fl (80-100); Nucleated Red Blood Cells Absolute Auto 0.000 K/mm3 (0.0-0.012); Nucleated Red Blood Cells Perc 0.0 % (0.0-0.2); Platelet Count Result 200 k/mm3 (150-375); Red Blood Count 4.31 M/mm3 (4.2-5.4); White Blood Count 5.0 K/mm3 (4.5-10.0)
[2025-02-25 09:14] LABS: Alanine Aminotransferase 24 U/L (6-35); Albumin Level 4.3 g/dL (3.5-5.1); Alkaline Phosphatase 93 U/L (38-126); Anion Gap 5 mmol/L (4-12); Aspartate Amino Transferase 42 U/L (14-36); Bilirubin,Total 0.6 mg/dL (0.2-1.3); Blood Urea Nitrogen 15 mg/dL (7-17); Calcium 10.0 mg/dL (8.4-10.2); Carbon Dioxide 30 mmol/L (22-30); Chloride 103 mmol/L (98-107); Cholesterol 187 mg/dL (0-200); Estimated Glomerular Filt Rate > 60; Glucose 101 mg/dL (65-110); HDL Direct 49 mg/dL; Potassium 4.1 mmol/L (3.4-5.0); Sodium 138 mmol/L (137-145); Total Protein 7.9 g/dL (6.3-8.2); Triglycerides 158 mg/dL (<150)
[2025-02-25 09:15] LABS: Hemoglobin A1C 5.7 % (<5.7)
== END 2025-02-25 08:26 | disposition home or self-care (01) ==
LOC: ANHLAB 08:26
PROVIDERS: PCP Family Medicine; Visit Provider Family Medicine
DX: R73.9 Hyperglycemia, unspecified (principal); I10 Essential (primary) hypertension; I25.10 Atherosclerotic heart disease of native coronary artery without angina pectoris; R78.2 Finding of cocaine in blood; R73.03 Prediabetes; E66.9 Obesity, unspecified; E55.9 Vitamin D deficiency, unspecified; G47.33 Obstructive sleep apnea (adult) (pediatric)
CPT/HCPCS: 36415; 80053; 80061; 82172; 82306; 83036; 85025

== ENCOUNTER 2025-03-03 12:51 | Outpatient (CLI) | payer MEDICARE, SELFPAY ==
--- NOTE | ~2025-03-03 | US_ITS ---
EXAMINATION: US soft tissue head and neck DATE: 03/03/2025 13:02 INDICATION: Localized swelling, mass or lump at the left posterior neck TECHNIQUE: Multiple grayscale and Doppler ultrasound images of the posterior left neck were obtained. COMPARISON: None FINDINGS/IMPRESSION: No abnormal masses or fluid collections at the posterior left neck region of concern. Reviewed, dictated and finalized at location A.
== END 2025-03-03 12:52 | disposition home or self-care (01) ==
LOC: MICIMG 12:52
PROVIDERS: PCP Family Medicine; Visit Provider Family Medicine
DX: R22.1 Localized swelling, mass and lump, neck (principal)
CPT/HCPCS: 76536